=== PATIENT | female | born 1950 | race African-American/Black ===

== ENCOUNTER 2017-09-18 19:04 | Emergency (ER) | payer MEDICARE, OTHER ==
[~2017-09-18] VITALS: Ht 165.1 cm; Wt 65.8 kg
[~2017-09-18 19:04] MED LIST: ATIVAN0.5 MG PO; BAYER CHEWABLE81 MG PO; CARVEDILOL12.5 MG PO; CARVEDILOL25 MG PO; CELEXA20 MG PO; CIPRO500 MG PO; CLOPIDOGREL; COLACE100 MG PO; CYCLOBENZAPRINE5 MG PO; DEMADEX10 MG PO; DOXYCYCLINE 10100 MG PO; FAMCICLOVIR500 MG PO; FLAGYL500 MG PO; FLEXERIL; HUMALOG100 UNIT/1; HUMALOG100 UNIT/2 SUBQ; HYDROCODON-ACE1 EAC7 PO; HYDROCODONE-AP1 EAC6 PO; LANTUS; LANTUS100 UNIT/M SUBQ; LEVAQUIN 500 M500 M2 PO; LISINOPRIL20 MG PO; LOPRESSOR; LYRICA150 MG PO; LYRICA20 MG/1 ML PO; MAGOX 400400 MG PO; MYFORTIC180 MG PO; MYFORTIC360 MG PO; NOHOMEMEDICATIONS; NORCO 5-325 TA1 EAC1 PO; NORCO 5-325 TA1 EACH PO; NOVOLOG100 UNIT/1 SQ; ONDANSETRON HCL4 M2 PO; PERCOCET; PHOSLO667 MG; PLAVIX 75 MG TA75 M1 PO; PROBIOTIC1 EAC1 PO; PROGRAF1 MG PO; PROTONIX40 M1 PO; RENAVITE; SENSIPAR 30 MG30 M1; VICODIN 5-5001 EACH PO; ZOCOR40 MG PO; ZOFRAN ODT4 MG PO; ZOFRAN8 MG PO
[2017-09-18] MEDS ORDERED: ELIQUIS5 MG PO (19:11)
[2017-09-18 20:07] LABS: URINE BILIRUBIN NEGATIVE (Negative); URINE BLOOD TRACE (Negative); URINE CLARITY CLEAR; URINE COLOR YELLOW; URINE GLUCOSE-RANDOM NEGATIVE (Negative); URINE KETONES NEGATIVE (Negative); URINE PROTEIN NEGATIVE (Negative); URINE SPECIFIC GRAVITY 1.015 (1.005-1.030); URINE UROBILINOGEN 0.2 E.U./dl (0.2-1.0)
[2017-09-18 20:08] LABS: URINE LEUKOCYTES-REFLEX 2+ (Negative); URINE NITRITE-REFLEX POSITIVE (Negative)
[2017-09-18 20:21] LABS: BACTERIA-REFLEX >30 Many /HPF (None Seen); SQUAMOUS >10 Many /LPF (0-3); URINE RBC 0-2 Rare /HPF (0-2); WBC CLUMPS Few (None Seen)
[2017-09-18] MEDS ORDERED: CLARITIN10 MG PO (20:21)
[2017-09-18] MEDS ORDERED: FLONASE 0.05%50 MCG NASAL (20:21)
[2017-09-18 20:22] LABS: CASTS None Seen /LPF (None Seen); CRYSTALS None Seen /LPF (None Seen); MUCUS None Seen strn/LPF (None Seen)
[2017-09-18] MEDS ORDERED: CIPRO500 MG PO (20:25)
[2017-09-18 20:33] VITALS: BP 153/42
== END 2017-09-18 20:34 | disposition home or self-care (01) ==
LOC: M.ERS 19:04
PROVIDERS: Nurse Practitioner Family
DX: N39.0 Urinary tract infection, site not specified (principal); H92.12 Otorrhea, left ear; F41.9 Anxiety disorder, unspecified; F32.9 Major depressive disorder, single episode, unspecified; E10.22 Type 1 diabetes mellitus with diabetic chronic kidney disease; N18.6 End stage renal disease; I25.10 Atherosclerotic heart disease of native coronary artery without angina pectoris; I12.0 Hypertensive chronic kidney disease with stage 5 chronic kidney disease or end stage renal disease; Z86.73 Personal history of transient ischemic attack (TIA), and cerebral infarction without residual deficits; Z90.49 Acquired absence of other specified parts of digestive tract; Z88.5 Allergy status to narcotic agent; Z91.041 Radiographic dye allergy status

== ENCOUNTER 2017-10-04 22:15 | Inpatient (IN) | payer MEDICARE, OTHER ==
[~2017-10-04] VITALS: Ht 165.1 cm; Wt 62.6 kg
[~2017-10-04 22:15] MED LIST changes: +CLARITIN10 MG PO; +ELIQUIS5 MG PO; +FLONASE 0.05%50 MCG NASAL
[2017-10-04 22:27] VITALS: BP 131/52
[2017-10-05 00:07] LABS: URINE BILIRUBIN 2+ (Negative); URINE BLOOD NEGATIVE (Negative); URINE CLARITY CLEAR; URINE COLOR YELLOW; URINE GLUCOSE-RANDOM NEGATIVE (Negative); URINE KETONES NEGATIVE (Negative); URINE LEUKOCYTES-REFLEX NEGATIVE (Negative); URINE NITRITE-REFLEX NEGATIVE (Negative); URINE PROTEIN NEGATIVE (Negative); URINE SPECIFIC GRAVITY >= 1.030 (1.005-1.030); URINE UROBILINOGEN 0.2 E.U./dl (0.2-1.0)
[2017-10-05 00:15] LABS: ICTOTEST (BILI CONFIRMATORY) Negative (Negative)
--- NOTE | 2017-10-05 00:36 | NUR ---
THIS NURSE HAS ATTEMPTED TIMES TWO. AND A SECOND NURSE HAS ALSO. CHARGE NURSE HAS BEEN NOTIFIED. LAB WAS CALLED AT THIS TIME WELL AND UPDATED ON IV STATUS (pT HAD REFUSED LAB REQUESTING IT BE DONE WHEN IV WAS STARTED.)
[2017-10-05 02:21] LABS: ABSOLUTE LYMPHOCYTES 1.4 thou/uL (0.8-5.3); ABSOLUTE MONOCYTES 0.5 thou/uL (0.0-1.2); ABSOLUTE NEUTROPHILS 5.4 thou/uL (1.6-8.1); BASOPHILS 0.6 %; EOSINOPHILS 0.4 %; HEMOGLOBIN 11.7 gm/dL (12.0-15.0); LYMPHOCYTES 19.4 %; MCHC 32.4 g/dL (28.0-37.0); MCV 86.4 fL (80.0-100.0); MONOCYTES 7.1 %; MPV 9.9 fl. (7.2-11.1); NUCLEATED RBCS 0 /100WBC; PLATELET COUNT* 214 thou/uL (150-400); POLYS 72.5 %; RBC 4.16 mil/uL (4.20-5.00); RDW-CV 13.8 % (10.5-14.5); WBC 7.4 thou/uL (4.0-11.0)
[2017-10-05 02:30] LABS: ANION GAP 12 mmol/L (7-16); BUN 69 mg/dL (7-18); CALCIUM 9.9 mg/dL (8.5-10.1); CHLORIDE 108 mmol/L (98-107); CO2 24 mmol/L (21-32); CREATININE 2.4 mg/dL (0.6-1.3); GLUCOSE 114 mg/dL (70-99); POTASSIUM 3.9 mmol/L (3.5-5.1); SODIUM 144 mmol/L (136-145)
[2017-10-05 02:34] VITALS: BP 166/61
[2017-10-05 02:41] LABS: ALBUMIN 3.3 g/dL (3.4-5.0); ALKALINE PHOSPHATASE 133 U/L (46-116); LIPASE 132 U/L (73-393); NT-PRO BRAIN NAT PEPTIDE 710 pg/mL (<300); SGOT 29 U/L (15-37); SGPT 20 U/L (30-65); TOTAL BILIRUBIN 0.7 mg/dL (<0.1-1.0); TOTAL PROTEIN 7.1 g/dL (6.4-8.2); TROPONIN-I LEVEL <0.06 ng/mL (<0.06)
--- NOTE | 2017-10-05 06:04 | NUR ---
PT TO FLOOR APROX 0230 AND ASSUMED CARE. A&O X4 CALM COOPERITVE. SR ON THE MONITOR. IVF. UP X1 TO COMODE. RA. VITALS WNL. SEE MAR. SEE CHARTING. FALL PRECAUTIONS IN PLACE. HOURLY ROUNDING FOR SAFETY.
[2017-10-05 08:05] VITALS: BP 135/39
--- NOTE | 2017-10-05 08:15 | NUR ---
RECEIVED REPORT. ASSUMED CARE OF PT AT 0730. VSS. CARDIAC MONTIORING IN PLACE SR. AM ASSESSMENT AND VITALS COMPLETED CHARTED. PT ALERT AND ORIETNED. PT ON RA. IV SALINE LOCKED. PT REPORTS HEADACHE THIS AM. PRN TYLENOL GIVEN. PT IS UP WITH MOD. ASSISTANCE AND CANE TO BATHROOM. PT HAS HX OF CVA WITH RIGHT SIDED WEAKNESS. PT'S SON AT BEDSIDE. PT ASSISTED UP FOR BREAKFAST. CALL LIGHT IS WITIN REACH. WILL CONTINUE TO MONITOR FOR DURATION OF SHIFT.
[2017-10-05 11:51] VITALS: BP 122/47
--- NOTE | 2017-10-05 13:06 | EKG ---
[place] [address] ELECTROCARDIOGRAM REPORT Name: DIONI RANDHAWA Room: [address] IN .R.#: [id number] Admission: 10/05/17 Attend Phys: Benjamin Winston MD Discharge: Date of : 54 Report #: [id number] THIS REPORT FOR: //name// [facility] ED Test Date: 2017-10-04 Test Time: 23:31:16 Pat Name: DIONI RANDHAWA Department: Room: Gender: Knot Borer: JASE Mccurdy : 1950 Requested By: Tiana Hough Order Number: [id number] MD: Jonh Al Measurements Intervals [place] Rate: 74 P: 15 DE: 174 QRS: 10 QRSD: 124 T: 10 QT: 440 QTc: 489 Interpretive Statements Sinus rhythm Probable left atrial enlargement Nonspecific intraventricular conduction delay Baseline wander in lead(s) V6 Compared to ECG 03/03/2017 14:55:54 Intraventricular conduction delay now present Electronically Signed On 10-05-2017 13:06:42 CDT by Jonh Al [email or web address] <ELECTRONICALLY SIGNED> By: Jonh Al MD, FACC 10/05/17 1306 [id number] Jonh Al MD, [facility] /EPI
--- NOTE | 2017-10-05 15:12 | NUR ---
CM SPOKE TO THE PATIENT TO DISCUSS HOME SITUATION, DISCHARGE PLANNING, AND TO INFORM OF THE ROLE OF CM. PATIENT ALERT AND ORIENTED. PATIENT RESIDES AT HOME WITH HE SON AND STATES THAT THEY 'DEPEND ON EACH OTHER'. PATIENT DOES ALL COOKING AND CLEANING AT HOME. NEITHER OF THEM DRIVE. 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 PATIENTS SISTER JAYDA CHECKIN IN THEM DAILY, BUT IS BUSY AND WORKS. PATIENT HAS A HX OF SNF AT [place]. PATIENT INFORMS THAT SHE PLANS TO RETURN HOME AT D/C. CM WAS INFORMED BY THE NURSE DIGITAL PRE PRESS OPERATOR THAT THE PATIENTS SON IS 'REQUESTING CARE AND ASSISTANCE FROM THE STAFF TO GET FROM THE BATHROOM, AND REQUESTING MEALS'. AT THE NURSE MANAGERS REQUEST CM SPOKE TO THE PATIENTS SISTER TO DISCUSS THIS, AND ALTHOUGH SHE AGREES WITH NURSING SHE IS WORKING AND IS NOT ABLE TO COME TO THE HOSPITAL RIGHT WAY, BUT WILL DISCUSS THIS WITH THE PATIENT AND HER NEPHEW. CM WILL REMAIN AVAILABLE TO ASSIST AND FOLLOW NEEDED.
[2017-10-05 16:14] VITALS: BP 113/30
--- NOTE | 2017-10-05 17:26 | NUR ---
VSS. CARDIAC MONTIORING IN PLACE WITH NO CHANGES THIS SHIFT. PT REMAINS ALERT AND ORIENTED. PT REMAINS ON RA. IVF INFUSING PER ORDERS. PT GIVEN IV PAIN MEDS WITH RELIEF. PT IS UP WITH STAND BY ASSISTANCE AND CANE. LAB UNABLE TO DRAW BMP WAS REPORTED THAT THEY WOULD RE-ATTEMPT. PT INFORMED OF PLAN OF CARE. CALL LIGHT IS WITHIN REACH. WILL CONTINUE TO MONITOR FOR DURATION OF SHIFT.
[2017-10-05 19:50] VITALS: BP 134/43
[2017-10-06] VITALS (7 sets, daily range): BP systolic 106–167; BP diastolic 25–87
--- NOTE | 2017-10-06 06:31 | NUR ---
A&O X4 CALM BENOIT. SR ON THE MONITOR. RA. UP WITH CANE. VITALS WNL. SEE MAR. SEE CHARTING. FALL PRECAUTIONS IN PLCE. HOURLY ROUNDING FOR SAFETY.
--- NOTE | 2017-10-06 07:20 | NUR ---
CHANGE OF SHIFT BEDSIDE REPORT GIVEN ASSUMED PATIENT CARE PATIENT SEEN AT BEDSIDE, ASLEEP IN BED
[2017-10-06 11:40] LABS: CALCIUM 8.8 mg/dL (8.5-10.1); CREATININE 2.3 mg/dL (0.6-1.3); POTASSIUM 4.3 mmol/L (3.5-5.1)
--- NOTE | 2017-10-06 18:10 | NUR ---
PATIENT LAYING IN BED WATCHING TV A AND O X 4 NSR CTA/DIM/RA GOOD APPETITE LAST BM UNKNOWN GOOD UO UP WITH ASSIST 1 TO BATHROOM IV L FA 20 GA IVF NS AT 75CC/HR C/O BURNETTE TREATED WITH FENTANYL IVP AND RELIEVED CALL LIGHT IN REACH AND INSTRUCTED GIVEN AND FOLLOWED
--- NOTE | 2017-10-07 02:45 | NUR ---
DOCTOR NOTIFIED OF HIGH BLOOD PRESSURE, SEE ORDERS.
--- NOTE | 2017-10-07 02:58 | NUR ---
PATIENT RESTED IN BED, NO ACUTE CHANGES. PATIENT DID NOT SHOW SIGNS OF DISTESS. FALL PRECAUTIONS IN PLACE, BED ALARM ON, CALL LIGHT WITHIN REACH, HOULRY ROUNDING OBSERVED.
[2017-10-07 03:43] VITALS: BP 153/51
[2017-10-07 04:45] LABS: CALCIUM 9.2 mg/dL (8.5-10.1); CREATININE 1.6 mg/dL (0.6-1.3); POTASSIUM 4.5 mmol/L (3.5-5.1)
[2017-10-07 08:00] VITALS: BP 175/65
[2017-10-07] MEDS ORDERED: CEFDINIR300 MG PO (10:37)
[2017-10-07] MEDS ORDERED: ACETAMINOPHEN500 M1 PO (10:49)
[2017-10-07 10:50] VITALS: BP 175/65
--- NOTE | 2017-10-07 10:50 | NUR ---
ASSUMED PT CARE AT 0700 PT IS ALERT AND ORIENTED X 4 PT DENIES PAIN OR SOA, PT IS UP AD DARI PT IS NOT A FALL RISK, PT IS SR ON THE MONITOR, PT IS CLEARED FOR DISCHARGE PT IV REMOVED MEDICATIONS GIVEN, WILL CONTINUE TO MONITOR
--- NOTE | 2017-10-19 08:41 | CON ---
[address] [address] CONSULTATION Name: SYDNEEDIONI Room: [address] IN M.R.#: [id number] Admission: 10/05/17 Attend Phys: Benjamin Winston MD Discharge: 10/07/17 Date of : 54 Report #: [id number] THIS REPORT FOR: //name// CC: Benjamin Winston [place] DATE OF SERVICE: 10/05/2017 NEPHROLOGY CONSULTATION CONSULTING PHYSICIAN: Benjamin Winston M.D. CHIEF COMPLAINT: Weakness, generalized pain and diarrhea. REASON FOR NEPHROLOGY CONSULTATION: Acute kidney injury on chronic kidney disease stage 3 and history of renal transplant. HISTORY OF PRESENT ILLNESS: This is a 66-year-old female and she has a past medical history of chronic kidney disease stage 3. Her last creatinine was 1.3 on 09/12/2017 and she follows with Dr. Carlson. She has a history of end-stage renal disease and was on hemodialysis, but then underwent kidney transplant in 2011, which was a donor transplant at [facility]. She has a history of diabetes type 1, hypertension and other medical problems, who came in feeling very weak with decreased appetite, and hence, she was admitted. The patient apparently was treated with multiple antibiotics in the past few days. Initially, she had hearing problems and had a UTI and with one of the antibiotics, she had also developed some diarrhea and then she lost her appetite and then she developed generalized aches and pains and that is why so she came to the hospital. She was found to have abnormal creatinine of 2.4 when she came in; hence, Nephrology was consulted. She follows with Dr. Carlson at [facility]. She does take lisinopril 20 mg a day as well as torsemide 10 mg a day in addition to her immunosuppressants, which are Myfortic 540 mg b.i.d. and tacrolimus which is 4 mg b.i.d. She was given some IV fluids overnight and we do not have a creatinine after that. She has been making urine. She has been feeling a little bit stronger. REVIEW OF SYSTEMS: The patient was having generalized pain and weakness and she was having diarrhea. Other review of systems were done and they were negative. ALLERGIES: IODINE AND CODEINE. PAST MEDICAL AND SURGICAL HISTORY: Included end-stage renal disease and she has had a kidney transplant, donor in 2011. Chronic kidney disease stage III now, with baseline creatinine of 1.3 in August of this year; history of coronary artery disease; history of bypass surgery in 2001; history of stroke; diabetes type 1; hypertension; cholecystectomy; shingles; anxiety; depression; [place] [address] CONSULTATION Name: DIONI RANDHAWA Room: [address] IN M.R.#: [id number] Admission: 10/05/17 Attend Phys: Benjamin Winston MD Discharge: 10/07/17 Date of : 54 Report #: [id number] fistula in the left arm; peripheral arterial disease and has sensory on the legs. FAMILY HISTORY: Noncontributory. HOME MEDICATIONS: Include Zofran, loratadine, fluticasone, lisinopril, Eliquis, pantoprazole, Demadex, simvastatin, magnesium oxide, Lyrica, tacrolimus 4 mg b.i.d., mycophenolate sodium 540 mg b.i.d., Plavix 75 mg daily, 12.5 mg b.i.d. and pregabalin 150 mg b.i.d. SOCIAL HISTORY: She lives with her son at home. She does not smoke or use alcohol or any recreational drugs. PHYSICAL EXAMINATION: VITAL SIGNS: Blood pressure is 135/39, respiratory rate is 18, pulse rate 73, temperature is 36.9 and pulse ox, she is not using any oxygen, was 100%. GENERAL: She is awake. She is weak and she is oriented x 3. HEAD, EYES, EARS, NOSE AND THROAT: Mucous members are moist. NECK: No JVD. LUNGS: Clear to auscultation bilaterally. No crackles or wheezing. CARDIOVASCULAR: S1, S2 normal. No murmurs or rubs. ABDOMEN: Soft, nondistended and nontender. Right lower quadrant, kidney transplant is intact. There is no pain. Incision is dry and clean. There is no bruit over the site. EXTREMITIES: Lower extremities, there is no edema. NEUROLOGICAL FUNCTION: Gross neurological function is intact. PSYCHIATRIC: Mood and affect seems to be normal. LABORATORY DATA: Labs from this morning at 02:00 a.m., hemoglobin is 11.7. Creatinine was 2.4 and BUN heather to 69 and chloride was 108 and sodium was 144. Other labs were reviewed. IMAGING: Chest x-ray was reviewed. ASSESSMENT AND PLAN: 1. Acute kidney injury on chronic kidney disease stage 3, history of renal transplant in the setting of diarrhea and poor appetite: The patient likely got dehydrated and then she was also on torsemide and lisinopril. So, these medications should be kept on hold and her creatinine should be checked again. Renal ultrasound for the transplant kidney will also be checked. Continue normal saline at 75 mL an hour and I's and O's. Tacrolimus will be checked in the morning. Hopefully, this is all dehydration and will get better. U/A showed no protein and no blood. 2. Diarrhea and just feeling weak: Diarrhea could have been associated with antibiotics. We will defer to primary team for further management of that. The patient is feeling a little stronger [place] [address] CONSULTATION Name: DIONI RANDHAWA Room: [address] IN .R.#: [id number] Admission: 10/05/17 Attend Phys: Benjamin Winston MD Discharge: 10/07/17 Date of : 54 Report #: [id number] 3. History of renal transplant, which donor in 2011: Continue with the current Myfortic at 540mg b.i.d. and tacrolimus 4 mg b.i.d. and tacrolimus level will be checked in the morning. Thank you for this consultation and we will continue to follow along with you. Plan was discussed with the patient as well as the patient's nurse. <ELECTRONICALLY SIGNED> By: Renay Yu MD 10/19/17 0841 1119 [id number] Yu MD /nt
== END 2017-10-07 11:28 | disposition home or self-care (01) | DRG 637 ==
LOC: M.ERS 22:15 → M.2W 10-05 00:56 → M.TBA-ER 10-05 00:56 → M.2W 10-05 02:28
PROVIDERS: Internal Medicine; Nurse Practitioner; ADMIT Internal Medicine
DX: E10.65 Type 1 diabetes mellitus with hyperglycemia (principal); N17.0 Acute kidney failure with tubular necrosis; N39.0 Urinary tract infection, site not specified; Z94.0 Kidney transplant status; Q61.9 Cystic kidney disease, unspecified; F41.9 Anxiety disorder, unspecified; E86.0 Dehydration; E10.22 Type 1 diabetes mellitus with diabetic chronic kidney disease; E10.51 Type 1 diabetes mellitus with diabetic peripheral angiopathy without gangrene; F32.9 Major depressive disorder, single episode, unspecified; I12.9 Hypertensive chronic kidney disease with stage 1 through stage 4 chronic kidney disease, or unspecified chronic kidney disease; N18.3 Chronic kidney disease, stage 3 (moderate); R19.7 Diarrhea, unspecified; I25.10 Atherosclerotic heart disease of native coronary artery without angina pectoris; Z86.73 Personal history of transient ischemic attack (TIA), and cerebral infarction without residual deficits; Z90.49 Acquired absence of other specified parts of digestive tract; Z79.2 Long term (current) use of antibiotics; Z79.899 Other long term (current) drug therapy; Z88.6 Allergy status to analgesic agent; Z91.041 Radiographic dye allergy status; Z95.1 Presence of aortocoronary bypass graft; Z82.49 Family history of ischemic heart disease and other diseases of the circulatory system; Z82.3 Family history of stroke; Z84.1 Family history of disorders of kidney and ureter

== ENCOUNTER → 2018-01-25 | Outpatient (CLI) | payer MEDICARE, OTHER ==
[~2018-01-25] MED LIST changes: +ACETAMINOPHEN500 M1 PO; +CEFDINIR300 MG PO
== END ==
LOC: M.RAD 12:14
DX: M41.84 Other forms of scoliosis, thoracic region (principal); M53.9 Dorsopathy, unspecified

== ENCOUNTER → 2018-04-30 | Outpatient (CLI) | payer OTHER ==
--- NOTE | 2018-04-30 11:26 | 2DMMODE ---
[place] [address] 2 D/M-MODE ECHOCARDIOGRAM Name: SYDNEEDIONI Room: [facility]#: [id number] Admission: 04/30/18 Attend Phys: Linda Castillo Discharge: Date of : 54 Date of Service: 04/30/18 1126 Report #: [id number] THIS REPORT FOR: //name// APPROVED REPORT Study performed: 04/30/2018 10:29:23 EXAM: Comprehensive 2D, Doppler, and color-flow Echocardiogram Patient Location: Out-Patient Status: routine BSA: 1.73 HR: 68 bpm BP: 154/59 mmHg Other Information Study Quality: Good Indications Atrial Fibrillation CAD Hypertension/HDD 2D Dimensions IVSd: 14.69 (7-11mm) LVOT Diam: 20.07 (18-24mm) LVDd: 38.65 mm PWd: 11.58 (7-11mm) Ascending Ao: 30.00 (22-36mm) LVDs: 22.90 (25-40mm) Aortic Root: 25.29 mm Volumes Left Atrial Volume (Systole) LA ESV Index: 21.80 mL/m2 Aortic Valve AoV Peak Anastacio.: 1.36 m/s AO Peak Gr.: 7.36 mmHg LVOT Max P.76 mmHg AO Mean Gr.: 4.00 mmHg LVOT Mean P.96 mmHg LVOT Max V: 0.97 m/s AO V2 VTI: 31.04 cm LVOT Mean V: 0.65 m/s TORITO (VTI): 2.60 cm2 LVOT V1 VTI: 25.56 cm AI Tyrrell: 3.04 m/s2 AI PHT: 443.22 ms Mitral Valve E/A Ratio: 0.74 [place] [address] 2 D/M-MODE ECHOCARDIOGRAM Name: DIONI RANDHAWA Room: [facility]#: [id number] Admission: 04/30/18 Attend Phys: Linda Castillo Discharge: Date of : 54 Date of Service: 04/30/18 1126 Report #: [id number] MV Decel. Time: 192.69 ms MV E Max Anastacio.: 0.60 m/s MV PHT: 55.88 ms MVA (PHT): 3.94 cm2 TDI E/Lateral E': 6.67 E/Medial E': 12.00 Medial E' Anastacio.: 0.05 m/s Lateral E' Anastacio.: 0.09 m/s Pulmonary Valve PV Peak Anastacio.: 0.94 m/s PV Peak Gr.: 3.57 mmHg Tricuspid Valve RAP Estimate: 5.00 mmHg TR Peak Gr.: 20.82 mmHg RVSP: 25.82 mmHg PA Pressure: 25.82 mmHg Left Ventricle The left ventricle is normal size. There is normal LV segmental wall motion. Mild concentric left ventricular hypertrophy. Left ventricular systolic function is normal. The left ventricular ejection fraction is within the normal range. LVEF is 55-60%. Grade I - abnormal relaxation pattern. Right Ventricle The right ventricle is normal size. The right ventricular systolic function is normal. Atria The left atrium size is normal. The right atrium size is normal. Aortic Valve Aortic valve is mildly calcified. Mild aortic regurgitation. There is no aortic valvular stenosis. Mitral Valve The mitral valve is normal in structure. Mild mitral regurgitation. No evidence of mitral valve stenosis. Tricuspid Valve The tricuspid valve is normal in structure. [place] [address] 2 D/M-MODE ECHOCARDIOGRAM Name: DIONI RANDHAWA Room: [facility]#: [id number] Admission: 04/30/18 Attend Phys: Linda Castillo Discharge: Date of : 54 Date of Service: 04/30/18 1126 Report #: [id number] Pulmonic Valve The pulmonary valve is normal in structure. Trace pulmonic regurgitation. Great Vessels The aortic root is normal in size. IVC is normal in size and collapses >50% with inspiration. Pericardium There is no pericardial effusion. <Conclusion> Mild concentric left ventricular hypertrophy. LVEF is 55-60%. Aortic valve is mildly calcified. Mild aortic regurgitation. Mild mitral regurgitation. <ELECTRONICALLY SIGNED> By: Uli Weaver MD, FACC 04/30/18 1126 112 112 Uli Weaver MD, FACC /INF
== END ==
LOC: M.CRD 10:00
DX: I25.810 Atherosclerosis of coronary artery bypass graft(s) without angina pectoris (principal); I48.0 Paroxysmal atrial fibrillation; I48.91 Unspecified atrial fibrillation; I10 Essential (primary) hypertension; I08.0 Rheumatic disorders of both mitral and aortic valves

== ENCOUNTER → 2018-07-10 | Outpatient (CLI) | payer OTHER | LOC: M.RAD 11:35 | DX: Z51.81 Encounter for therapeutic drug level monitoring (principal); Z79.899 Other long term (current) drug therapy; Z88.5 Allergy status to narcotic agent; Z91.041 Radiographic dye allergy status; Z98.890 Other specified postprocedural states ==

== ENCOUNTER → 2018-10-11 | Outpatient (CLI) | payer OTHER | LOC: M.ULTRA 10:28 | DX: M79.604 Pain in right leg (principal); I12.9 Hypertensive chronic kidney disease with stage 1 through stage 4 chronic kidney disease, or unspecified chronic kidney disease; E11.22 Type 2 diabetes mellitus with diabetic chronic kidney disease; E11.51 Type 2 diabetes mellitus with diabetic peripheral angiopathy without gangrene; E78.5 Hyperlipidemia, unspecified; E11.42 Type 2 diabetes mellitus with diabetic polyneuropathy; I48.0 Paroxysmal atrial fibrillation; N18.4 Chronic kidney disease, stage 4 (severe); I25.10 Atherosclerotic heart disease of native coronary artery without angina pectoris; Z79.899 Other long term (current) drug therapy; Z79.4 Long term (current) use of insulin; Z95.1 Presence of aortocoronary bypass graft; Z94.0 Kidney transplant status; Z88.8 Allergy status to other drugs, medicaments and biological substances ==

== ENCOUNTER → 2018-10-30 | Outpatient (CLI) | payer OTHER | LOC: M.RAD 10-29 14:00 → M.CT 10-29 14:00 | DX: I67.82 Cerebral ischemia (principal); I70.0 Atherosclerosis of aorta; I63.81 Other cerebral infarction due to occlusion or stenosis of small artery; G44.311 Acute post-traumatic headache, intractable; M79.604 Pain in right leg; Z88.8 Allergy status to other drugs, medicaments and biological substances ==

== ENCOUNTER → 2018-10-31 | Outpatient (CLI) | payer OTHER | LOC: M.ULTRA 12:38 | DX: S82.401D Unspecified fracture of shaft of right fibula, subsequent encounter for closed fracture with routine healing (principal); I70.203 Unspecified atherosclerosis of native arteries of extremities, bilateral legs; Z88.8 Allergy status to other drugs, medicaments and biological substances; W19.XXXD Unspecified fall, subsequent encounter ==

== ENCOUNTER 2018-12-26 16:42 | Inpatient (IN) | payer OTHER ==
[~2018-12-26] VITALS: Ht 162.6 cm; Wt 84.9 kg
[2018-12-26] VITALS (15 sets, daily range): BP systolic 127–194; BP diastolic 46–103
[~2018-12-26 16:42] MED LIST changes: -DEMADEX10 MG PO; +DEMADEX20 MG PO
[2018-12-26 17:35] LABS: HEMATOCRIT 39.1 % (37.0-47.0); HEMOGLOBIN 12.6 gm/dL (12.0-15.0); MCH 28.8 pg (26.0-34.0); MCHC 32.2 g/dL (28.0-37.0); MCV 89.5 fL (80.0-100.0); MPV 9.3 fl. (7.2-11.1); NUCLEATED RBCS 0 /100WBC; PLATELET COUNT* 201 thou/uL (150-400); RBC 4.37 mil/uL (4.20-5.00); RDW-CV 14.6 % (10.5-14.5); WBC 13.5 thou/uL (4.0-11.0)
[2018-12-26 17:42] LABS: URINE BILIRUBIN NEGATIVE (Negative); URINE BLOOD 2+ (Negative); URINE CLARITY CLEAR; URINE COLOR YELLOW; URINE GLUCOSE-RANDOM 2+ (Negative); URINE LEUKOCYTES-REFLEX NEGATIVE (Negative); URINE NITRITE-REFLEX NEGATIVE (Negative); URINE PROTEIN 2+ (Negative); URINE SPECIFIC GRAVITY 1.025 (1.005-1.030); URINE UROBILINOGEN 0.2 E.U./dl (0.2-1.0)
[2018-12-26 17:45] LABS: CALCIUM 9.2 mg/dL (8.5-10.1); CREATININE 1.3 mg/dL (0.6-1.3); POTASSIUM 4.3 mmol/L (3.5-5.1)
[2018-12-26 17:48] LABS: URINE KETONES 3+ (Negative)
[2018-12-26 17:49] LABS: ALBUMIN 3.3 g/dL (3.4-5.0); MAGNESIUM 1.6 mg/dL (1.8-2.4); TOTAL BILIRUBIN 1.1 mg/dL (<0.1-1.0); TOTAL PROTEIN 7.1 g/dL (6.4-8.2)
[2018-12-26 17:49] LABS: ACETEST (KETONE CONFIRMATORY) Large (Negative)
[2018-12-26 18:04] LABS: BACTERIA-REFLEX 1-9 Few /HPF (None Seen); CASTS None Seen /LPF (None Seen); CRYSTALS None Seen /LPF (None Seen); SQUAMOUS 0-3 Few /LPF (0-3); URINE RBC 0-2 Rare /HPF (0-2); URINE WBC-REFLEX 0-5 Rare /HPF (0-5)
[2018-12-26 18:14] LABS: ABSOLUTE LYMPHOCYTES 0.5 thou/uL (0.8-5.3); ABSOLUTE MONOCYTES 0.8 thou/uL (0.0-1.2); ABSOLUTE NEUTROPHILS 12.2 thou/uL (1.6-8.1)
[2018-12-26 18:15] LABS: PLATELET ESTIMATE ADEQUATE
[2018-12-26 21:28] LABS: BE -15.1 mmol/L (-2 to +3); PO2 87.1 mmHg (75.0-100.0)
[2018-12-26 21:31] LABS: pH 7.218 (7.340-7.450)
[2018-12-26 21:58] LABS: CALCIUM 9.4 mg/dL (8.5-10.1); CREATININE 1.4 mg/dL (0.6-1.3); POTASSIUM 4.9 mmol/L (3.5-5.1)
[2018-12-26 22:01] LABS: ALBUMIN 3.3 g/dL (3.4-5.0); MAGNESIUM 1.7 mg/dL (1.8-2.4); PHOSPHORUS* 3.5 mg/dL (2.5-4.9)
[2018-12-27] VITALS (35 sets, daily range): BP systolic 79–200; BP diastolic 37–82
[2018-12-27 01:14] LABS: HEMATOCRIT 33.2 % (37.0-47.0); HEMOGLOBIN 11.1 gm/dL (12.0-15.0); MCH 29.1 pg (26.0-34.0); MCHC 33.3 g/dL (28.0-37.0); MCV 87.6 fL (80.0-100.0); MPV 8.9 fl. (7.2-11.1); RBC 3.79 mil/uL (4.20-5.00); RDW-CV 14.8 % (10.5-14.5); WBC 8.4 thou/uL (4.0-11.0)
[2018-12-27 01:21] LABS: ALBUMIN 2.6 g/dL (3.4-5.0); CALCIUM 8.9 mg/dL (8.5-10.1); CREATININE 1.4 mg/dL (0.6-1.3); MAGNESIUM 2.2 mg/dL (1.8-2.4); PHOSPHORUS* 1.2 mg/dL (2.5-4.9)
[2018-12-27 01:22] LABS: POTASSIUM 3.6 mmol/L (3.5-5.1)
[2018-12-27 01:37] LABS: ALBUMIN 2.7 g/dL (3.4-5.0); ALKALINE PHOSPHATASE 122 U/L (46-116); ANION GAP 14 mmol/L (7-16); BUN 11 mg/dL (7-18); CALCIUM 8.5 mg/dL (8.5-10.1); CHLORIDE 114 mmol/L (98-107); CO2 18 mmol/L (21-32); CREATININE 1.5 mg/dL (0.6-1.3); GLUCOSE 140 mg/dL (70-99); MAGNESIUM 2.3 mg/dL (1.8-2.4); SGOT 10 U/L (15-37); SGPT 17 U/L (30-65); SODIUM 146 mmol/L (136-145); TOTAL BILIRUBIN 0.8 mg/dL (<0.1-1.0); TOTAL PROTEIN 5.4 g/dL (6.4-8.2)
[2018-12-27 01:38] LABS: POTASSIUM 3.6 mmol/L (3.5-5.1)
[2018-12-27 05:13] LABS: ALBUMIN 2.6 g/dL (3.4-5.0); CALCIUM 8.6 mg/dL (8.5-10.1); CREATININE 1.5 mg/dL (0.6-1.3); MAGNESIUM 2.4 mg/dL (1.8-2.4); PHOSPHORUS* 2.2 mg/dL (2.5-4.9); POTASSIUM 4.8 mmol/L (3.5-5.1)
--- NOTE | 2018-12-27 06:45 | NUR ---
ASSESSMENTS CHARTED. PATIENT ON UNIT AT 195. FLUIDS AND INSULIN INFUSING FOR MAJORITY OF SHIFT PER DKA PROTOCOL. PATIENT BEGAN EXPERIENCING SOA AND DYSPNEA AT 0600. PLACED PATIENT ON 2L O2 AND CALLED PHYSICIAN. ORDERS RECEIVED, CXR OBTAINED. FLUIDS AND INSULIN STOPPED PER PHYSICIAN ORDER. BLOOD GLUCOSE DOWN TO 259. LAB WORK SHOWS ANION GAP CLOSED. NO FAMILY PRESENT DURING SHIFT. PATIENT DENIED HAVING TO URINATE DURING SHIFT, UPON FURTHER ASSESSMENT PAITENT HAD URINATED IN THE BED WITHOUT REALIZING IT. PATIENT REFUSES TO HAVE FRANCOIS CATHETER OR STRAIGHT CATH PLACED. PATIENT WAS FEBRILE ON ADMISSION, FEVER NOW RESOLVED. WILL CONTINUE TO MONITOR.
[2018-12-27 07:40] LABS: BE -6.4 mmol/L (-2 to +3); PCO2 33.5 mmHg (35.0-45.0); pH 7.353 (7.340-7.450)
--- NOTE | 2018-12-27 13:56 | NUR ---
PT A&O. DKA DC'd PER DR WEBB. VSS. INSULIN ADMINISTERED PER PROTOCOL. PURE WICK CATHETER APPLIED FOR INCONTINENCE. PT TOLERATED SIPS, SWALLOWING HER PILLS FINE. IVF AT 75 MLS/HR. REPORT GIVEN TO STOCK SHIPPER, PACO. FAMILY NOTIIFED.
--- NOTE | 2018-12-27 14:30 | NUR ---
PT.LETHARGIC. AWAKENS BRIEFLY WITH MUCH NAME CALLING, SHAKING HER HAND. SON,WOODROW AND SISTER,JAYDA YARBROUGH AT BEDSIDE. PT.IS NORMALLY INDEPENDENT AT HOME WITH ADS'S,COOKING, CLEANING,LAUNDRY. SHE NO LONGER DRIVES. SON LIVES WITH HER. SHE HAS A CANE BUT DOENS'T ALWAYS NEED TO USE IT. WAS FEELING WELL UNTIL LATE MON. DAUGHTER WILL BE FAXING [employer] WORK FROM [facility]. FOR TO FILL OUT,PER JAYDA. SON MENTIONED INSULIN DEVICE LAYING ON BEDSIDE TABLE. HE IS PT.WEARS THIS. HE CALLED IT A VEGO. HE SAID PT.CLICKS IT TWICE BEFORE MEALS AND SNACKS. IT GIVES HER INSULIN. HE WAS NOT SURE WHAT PRESCRIBED IT. HE SAID SHE HAS MORE AT HOME AND CANNOT REAPPLY THIS ONE ONCE IT HAS COME OFF. DISCARDED IT IN SHARPS BOX. FAMILY EXPRESSED CONCERN THAT THIS IS NOT WORKING PROPERLY OR PT.FORGETS TO CLICK IT, SINCE BG IS HIGH. ROBERT CALLED OFFICE AND SPOKE WITH EDITH JACQUES. SHE SAID THEY PRESCRIBED VEGO. PT.IS TO CLICK IT TWICE WHENEVER SHE EATS. IT IS FILLED WITH NOVALOG INSULIN. SHE SAID PT.CAN FOLLOW UP WITH THEM AT DISCHARGE TO HAVE IT REPLACED. PT.ALSO HAS HX OF KIDNEY TRANSPLANT IN 2011. STILL FOLLOWS WITH [facility]. CM WILL FOLLOW.
--- NOTE | 2018-12-27 17:33 | NUR ---
ASSUMED PT CARE AT 1330. PT CAME UP TO THE FLOOR AND WAS LETHARGIC AND HARD TO AROUSE. BLOOD PRESSURE WAS 70S OVER 30S, NOTIFIED DR AND NEW ORDERS RECIEVED. PT FAMILY IN ROOM AND ASKED MULTIPLE QUESTIONS. THIS NURSE, DOCTORS, AND RN PRIVATE DUTY ANSWERED QUESTIONS. NO FURTHER QUESTIONS OR COMMENTS NOTED. PT WOKE UP ONCE AND WAS ABLE TO TALK TO THIS NURSE. PT IS RESTING IN BED AT THIS TIME. WILL CONTINUE TO MONITOR.
[2018-12-28] VITALS (7 sets, daily range): BP systolic 114–154; BP diastolic 37–62
--- NOTE | 2018-12-28 03:45 | NUR ---
ASSUMED CARE OF PT AT 1900. PT IS ALERT ANDF ORIENTED. VSS. PERRLA. NO COMPLAINTS OF PAIN. PT HAD A TEMP OF 102. PT RECIEVED TYLENOL. NOTIFIED. PT IS IN SINUS RYTHM ON THE TELEMETRY. PT IS RESTING COMFORTABLY IN BED. RESPIRATIONS ARE EVEN AND NONLABORED. WILL CONTINUE TO MONITOR PT.
[2018-12-28 05:23] LABS: ABSOLUTE LYMPHOCYTES 0.7 thou/uL (0.8-5.3); ABSOLUTE MONOCYTES 0.8 thou/uL (0.0-1.2); ABSOLUTE NEUTROPHILS 5.2 thou/uL (1.6-8.1); BASOPHILS 0.4 %; EOSINOPHILS 0.4 %; HEMATOCRIT 32.4 % (37.0-47.0); HEMOGLOBIN 10.8 gm/dL (12.0-15.0); LYMPHOCYTES 10.2 %; MCH 29.1 pg (26.0-34.0); MCHC 33.2 g/dL (28.0-37.0); MCV 87.7 fL (80.0-100.0); MONOCYTES 12.1 %; MPV 9.4 fl. (7.2-11.1); NUCLEATED RBCS 0 /100WBC; PLATELET COUNT* 158 thou/uL (150-400); POLYS 76.9 %; RDW-CV 15.2 % (10.5-14.5); WBC 6.8 thou/uL (4.0-11.0)
[2018-12-28 05:53] LABS: ALBUMIN 2.2 g/dL (3.4-5.0); ALKALINE PHOSPHATASE 100 U/L (46-116); ANION GAP 9 mmol/L (7-16); BUN 14 mg/dL (7-18); CALCIUM 8.4 mg/dL (8.5-10.1); CHLORIDE 112 mmol/L (98-107); CO2 22 mmol/L (21-32); CREATININE 1.7 mg/dL (0.6-1.3); GLUCOSE 139 mg/dL (70-99); PHOSPHORUS* 1.6 mg/dL (2.5-4.9); SGOT 14 U/L (15-37); SGPT 16 U/L (30-65); SODIUM 143 mmol/L (136-145); TOTAL BILIRUBIN 0.5 mg/dL (<0.1-1.0); TOTAL PROTEIN 5.4 g/dL (6.4-8.2)
[2018-12-28 05:59] LABS: POTASSIUM 3.5 mmol/L (3.5-5.1)
--- NOTE | 2018-12-28 10:45 | CON ---
[address] [address] CONSULTATION Name: SYDNEEDIONI Room: [address] IN M.R.#: [id number] Admission: 12/26/18 Attend Phys: Sparkle Bill MD Discharge: Date of : 54 Report #: [id number] THIS REPORT FOR: //name// CC: Sparkle Pichardo DATE OF SERVICE: 12/28/2018 INFECTIOUS DISEASE CONSULTATION ATTENDING PHYSICIAN: Dr. Winston REASON FOR EVALUATION: Gram-negative septicemia. HISTORY OF PRESENT ILLNESS: Chart reviewed, patient examined. This is a 68-year-old woman with diabetes mellitus type 1 complicated historically with end-stage renal disease, she is post renal transplantation. She has had diffuse vasculopathy, known coronary artery disease and previous stroke who presented with progressive and severe weakness, associated with nausea and emesis the day or 2 prior to admission was at its onset. Evaluation was initially found to be hypertensive, subsequently became hypotensive, febrile up to 102. Blood sugars also have been markedly elevated as well. Chest x-ray was unrevealing. Initial creatinine was 1.3, this is going to 1.5. Lactic acid has not been elevated. Urinalysis somewhat unremarkable from microscopic standpoint. Blood cultures collected at the time of admission, now with 1 out 2 growth of gram-negative rods, had empirically been placed on antimicrobials with piperacillin and tazobactam. She is mildly encephalopathic. She feels poorly. She states she is chilling, some mild degree of dyspnea. Hemodynamically, she has improved with fluid resuscitation. ALLERGIES: LISTED TO IODINE AND CODEINE. CURRENT MEDICATIONS: Include Zosyn 3.375 IV every 12 hours, atorvastatin, insulin, fluticasone proprionate, loratadine, apixaban, clopidogrel, tacrolimus, levalbuterol, pantoprazole, ondansetron, pregabalin, mycophenolate, carvedilol, p.r.n. analgesics and antiemetics. PAST MEDICAL HISTORY: As described above, diabetes mellitus type 1, has widespread vasculopathy, has known coronary artery disease with previous bypass grafting, end-stage renal disease status post kidney transplantation in 2011, previous stroke, has hypertension, anxiety, depression, previous cholecystectomy and history of varicella zoster. SOCIAL HISTORY: Nonsmoker, no ethanol, no illicit drug use. FAMILY HISTORY: [place] [address] CONSULTATION Name: DIONI RANDHAWA Room: [address]#: [id number] Admission: 12/26/18 Attend Phys: Sparkle Bill MD Discharge: Date of : 54 Report #: [id number] REVIEW OF SYSTEMS: As noted above, otherwise unremarkable with the exception noted in history of present illness. PHYSICAL EXAMINATION: GENERAL: She appears somewhat chronically ill, in moderate distress. She is undernourished, perhaps mildly encephalopathic. She has shown evidence of chilling. VITAL SIGNS: T-max overnight 102, more recently 99.3, pulse 85, respirations 16 and blood pressure 114/37. SKIN: Warm, dry. No diaphoresis. HEENT: Normocephalic. Extraocular muscles are intact. NECK: Supple. LUNGS: Diminished breath sounds. Borderline tachypneic. I do not appreciate any crackles or rhonchi. HEART: Regular. I do not appreciate any murmur. ABDOMEN: Soft, nontender. There are no peritoneal signs. GENITOURINARY AND RECTAL: Deferred. LABORATORY DATA: Blood cultures, 1 out of 2 with gram-negative rods. Sed rate of 68. Most recent glucose is down from 300 to 158. Prealbumin of 8.7. Electrolytes: Sodium 143, potassium 3.5, chloride 112, bicarbonate is 22, anion gap of 9, BUN and creatinine of 14 and 1.7, it is up from 1.3. LFTs are unremarkable. Albumin of 2.2, total protein of 5.4. Estimated GFR of 36. Random cortisol was 20.9. A CT of the abdomen and pelvis showed no acute process, right lower quadrant renal transplant, severe atherosclerotic disease. Lactic acid of 0.7. ABGs: pH of 7.353, pCO2 of 33.5, pO2 of 77 and was on room air. ASSESSMENT AND PLAN: Gram-negative septicemia, it is not entirely clear as to the source. Urinalysis shows a very little pyuria and bacteriuria. We will await identification of the organism, you know she certainly could be an enteric as well. We will continue the piperacillin and tazobactam. She is certainly immunosuppressed would be at risk for more severe illness, although her hemodynamics have slightly improved, but likely will be able to transition to oral antibiotics prior to her discharge, which I would suspect to be within a few days. We will monitor expectantly. Certainly at risk for nosocomial related infectious complications. <ELECTRONICALLY SIGNED> By: Vidal Egan MD 12/28/18 1045 [id number] [id number] Egan MD /nt
--- NOTE | 2018-12-28 15:29 | NUR ---
ASSESSMENT COMPLETE. PT IS ALERT AND ORIENTED X4. FLAT AND SAD MOST OF THE DAY. PT TOLERATING REGULAR DIET, ACCU CHECK ACHS. IV FLUIDS INFUSING. PT IS ON ROOM AIR, VSS. PHOSPHORUS REPLACED PER NEPHROLOGY ORDERS. PT DENIES ANY PAIN. Q2 TURN. USES BEDPAN NEEDED. SKIN W/D/I. PT HAS LEFT LIMB ALERT FOR FISTULA. SEE ASSESSMENT AND VITALS FOR OTHER DETAILS. CALL LIGHT WITHIN REACH, WILL CONTINUE PLAN OF CARE
--- NOTE | 2018-12-29 03:20 | NUR ---
ASSUMED CARE OF PT AT 1900. PT IS ALERT AND ORIENTED. VSS. PERRLA. NO COMPLAINTS OF PAIN. PT IS IN SINUS RYTHM ON THE TELEMETRY. PT IS RESTING COMFORTABLY IN BED. RESPIRATIONS ARE EVEN AND NONLABORED. WILL CONTINUE TO MONITOR PT.
[2018-12-29 04:00] VITALS: BP 151/54
[2018-12-29 05:50] LABS: CALCIUM 8.2 mg/dL (8.5-10.1); CREATININE 2.2 mg/dL (0.6-1.3); POTASSIUM 3.4 mmol/L (3.5-5.1)
[2018-12-29 08:55] VITALS: BP 164/70
--- NOTE | 2018-12-29 09:30 | NUR ---
ASSUME CARE AFTER REPORT APPROX 0730. [facility], ABLE TO EXPRESS NEEDS TO STAFF. GOLD LETTERER IN PLACE, SR 1D. O2 SAT 95% RA. PATIENT WORKING WITH PHYSICAL THERAPIST. NONSKID SOCKS TO BLE. PATIENT WITHOUT C/O PAIN, SOA, N/V OR OTHER DISTRESS. HOURLY ROUNDING FOR SAFETY AND PATIENT NEEDS.
[2018-12-29 12:43] VITALS: BP 145/64
--- NOTE | 2018-12-29 14:00 | NUR ---
CONTACTED LAB STAFF TO ASK ABOUT PROGRAF LAB RESULTS. LAB STAFF INFORMS THAT THIS LAB IS SENT TO [facility] AND IS A 2-3 DAY TURN AROUND.
[2018-12-29 18:01] VITALS: BP 99/48
[2018-12-29 19:35] VITALS: BP 139/60
[2018-12-29 23:50] VITALS: BP 130/48
[2018-12-30 04:19] VITALS: BP 150/61
[2018-12-30 05:08] LABS: POTASSIUM 3.7 mmol/L (3.5-5.1)
--- NOTE | 2018-12-30 06:00 | NUR ---
ASSUMED CARE OF PT AT 1900. PT IS ALERT AND ORIENTED. VSS. PERRLA. NO COMPLAINTS OF PAIN. PT IS INCONTINANT AT TIMES. PT IS IN SINUS RYTHM ON THE TELEMETRY. PT IS RESTING COMFORTABLY IN BED. RESPIRATIONS ARE EVEN AND NONLABORED. WILL CONTINUE TO MONITOR PT.
--- NOTE | 2018-12-30 07:20 | NUR ---
PATIENT'S DPOA'S NAME IS GREG RANDHAWA, . JAYDA YARBROUGH'S PHONE CORRECT NUMBER IS [phone].
[2018-12-30 07:43] VITALS: BP 160/59
--- NOTE | 2018-12-30 09:45 | NUR ---
ASSUMED CARE AFTER REPORT APPROX 0730. [facility], ABLE TO EXPRESS NEEDS TO STAFF. PRODUCTION ESTIMATOR IN PLACE, SR, 1ST DEGREE AV BLOCK. O2 SAT 95% RA. PATIENT C/O NAUSEA. PRN ZOFRAN GIVEN PER EMAR. UP WITH MAX ASSIST FOR TRANSFERS/AMBULATION. CALL LIGHT WITHIN REACH. HOURLY ROUNDING FOR SAFETY AND PATIENT NEEDS.
[2018-12-30 11:13] VITALS: BP 178/62
[2018-12-30 16:06] VITALS: BP 146/89
[2018-12-30 20:00] VITALS: BP 154/60
[2018-12-31 01:37] LABS: URINE BILIRUBIN NEGATIVE (Negative); URINE BLOOD TRACE (Negative); URINE CLARITY CLEAR; URINE COLOR YELLOW; URINE GLUCOSE-RANDOM 3+ (Negative); URINE KETONES NEGATIVE (Negative); URINE LEUKOCYTES NEGATIVE (Negative); URINE NITRITE NEGATIVE (Negative); URINE PROTEIN NEGATIVE (Negative); URINE SPECIFIC GRAVITY <= 1.005 (1.005-1.030); URINE UROBILINOGEN 0.2 E.U./dl (0.2-1.0)
--- NOTE | 2018-12-31 04:13 | NUR ---
ASSUMED PATIENT CARE AT 1900. ASSESSMENT COMPLETED CHARTED. VSS. SR ON MONITOR. HOURLY ROUNDING IN PLACE FOR PATIENT SAFETY. CLWR
[2018-12-31 04:45] VITALS: BP 151/52
--- NOTE | 2018-12-31 07:04 | NUR ---
I HAVE REVIEWED AND AGREE WITH NURSING ASSESSMENT COMPLETED BY PETAR ZIMMERMAN RN.
[2018-12-31 09:16] VITALS: BP 136/48
[2018-12-31 11:09] LABS: ABSOLUTE EOSINOPHILS 0.1 thou/uL (0.0-0.7); ABSOLUTE LYMPHOCYTES 0.9 thou/uL (0.8-5.3); ABSOLUTE MONOCYTES 0.7 thou/uL (0.0-1.2); ABSOLUTE NEUTROPHILS 5.1 thou/uL (1.6-8.1); BASOPHILS 0.3 %; EOSINOPHILS 0.9 %; HEMATOCRIT 31.4 % (37.0-47.0); HEMOGLOBIN 10.3 gm/dL (12.0-15.0); LYMPHOCYTES 13.1 %; MCH 28.9 pg (26.0-34.0); MCHC 32.7 g/dL (28.0-37.0); MCV 88.3 fL (80.0-100.0); MONOCYTES 10.3 %; MPV 9.4 fl. (7.2-11.1); NUCLEATED RBCS 0 /100WBC; PLATELET COUNT* 184 thou/uL (150-400); POLYS 75.4 %; RBC 3.56 mil/uL (4.20-5.00); RDW-CV 15.7 % (10.5-14.5); WBC 6.7 thou/uL (4.0-11.0)
[2018-12-31 11:17] LABS: ALBUMIN 1.9 g/dL (3.4-5.0); CALCIUM 8.3 mg/dL (8.5-10.1); TOTAL BILIRUBIN 0.4 mg/dL (<0.1-1.0); TOTAL PROTEIN 5.7 g/dL (6.4-8.2)
[2018-12-31 12:11] VITALS: BP 150/55
--- NOTE | 2018-12-31 14:41 | NUR ---
CONTINUE TO FOLLOW, MET WITH PT AND SON/WOODROW WHO SHE LIVES WITH. PT STATES SHE IS IMPROVING WITH THERAPY, STILL USING WALKER. PT ONLY HAS CANE AT HOME. ENCOURAGED HER TO DISCUSS WITH THERAPY TOMORROW TO SEE IF SHE IS SAFE WITH A CANE. SON IS IN A SLING WITH A SHOULDER INJURY AND PT WILL NEED TO BE FAIRLY INDEPENDENT. ENCOURAGED PT TO F/U WITH HER PCP DR ROONEY RE: USING HER VEGO AGAIN AND SHE UNDERSTOOD. ALSO CONFIRMED PT HAS A TALKING GLUCOMETER AT HOME BUT LOST HER LANCET DEVICE IN THE HOUSE, SON TO LOOK FOR IT. PT HAS HAD HH IN PAST, CANNOT REMEMBER NAME OF AGENCY BUT IS AGREEABLE TO HH AGAIN AND PLANS TO GO HOME AT [place]. STATES HER DTR IS COMING IN FROM [place] TO STAY WITH HER. WILL FOLLOW
[2018-12-31 16:00] VITALS: BP 172/64
--- NOTE | 2018-12-31 16:54 | NUR ---
LIYA WITH CUSTOMER RELATIONS SPOKE WITH PT WHO WANTED A SHOWER HOWEVER OT GOT PT UP TO BEDISDE TODAY AND COMPLETED BED BATH. ASSITED PT TO CHAIR WITH NURSE AID THERESA TWO PERSON ASSIST THIS AM. CHANGED BEDDING AND CLEANED PT USING BOTTOM AND BACKSIDE WIPE WITH FIT RITE WIPES. PT WANTS TO SIT IN SHOWER ON CHAIR AND CLEAN HERSELF HOWEVER I DO NOT THINK THIS IS SAFE GIVEN MY ASESSMENT OF THE PT'S WEAKNESS. MY OPTION WOULD BE FOR OT TO TRY AND SIT PT IN SHOWER CHAIR TOMORROW WHILE WORKING ANOTHER DAY WITH OT AND ANOTHER DAY TO GET STRONGER. EXPRESS THIS WISH THAT SHE WAIT UNTIL THE AM TO SIT IN SHOWER CHAIR THE SAFEST BEST OPTION HOWEVER PT REFUSES. LIYA WITH CUSTOMER SERVICE SPOKE WITH PT AGAIN AND INSTRUCTED THERESA NURSING AID TO PLACE PT IN SHOWER CHAIR. PT DOES NOT WISH TO HAVE A MALE THERE TO ASSIST WITH SHOWER. I AGAIN INFORMED PATIENT AND LIYA THAT THIS IS NOT THE SAFEST OPTION AT THIS TIME AND THAT THERESA WILL BE TAKING PT TO SIT IN SHOWER CHAIR UNDER THE INSTRUCTION OF LIYA FROM CUSTOMER SERVICE.
[2018-12-31 20:00] VITALS: BP 166/64
[2018-12-31 23:45] VITALS: BP 170/56
[2019-01-01 04:00] VITALS: BP 144/53
--- NOTE | 2019-01-01 05:19 | NUR ---
ASSUMED PATIENT CARE AT 1900. ASSESSMENT COMPLETED CHARTED. VSS. PATIENT IS SR ON MONITOR. HOURLY ROUNDING IN PLACE FOR PATIENT SAFETY. CLWR.
[2019-01-01 05:27] LABS: ALBUMIN 1.8 g/dL (3.4-5.0); CALCIUM 8.5 mg/dL (8.5-10.1); CREATININE 1.6 mg/dL (0.6-1.3); POTASSIUM 3.6 mmol/L (3.5-5.1); TOTAL BILIRUBIN 0.3 mg/dL (<0.1-1.0); TOTAL PROTEIN 5.3 g/dL (6.4-8.2)
--- NOTE | 2019-01-01 06:30 | NUR ---
I HAVE REVIEWED AND AGREE WITH NURSING ASSESSMENT COMPLETED BY PETAR ZIMMERMAN RN. NEGATIVE SEPSIS SCREENING THIS SHIFT.
[2019-01-01 08:00] VITALS: BP 151/69
--- NOTE | 2019-01-01 11:29 | NUR ---
ASSUMED PT CARE AT 0800, AOX4, UP SBA, O2 SAT 90'S RA. TRACING SR ON TELE. PT COMPLAINS OF CHRONIC BACK PAIN. PT WANTS TO GO HOME. VSS, AM ASSESSMENT CHARTED, MEDS GIVEN PER MAR, CALL LIGHT WITHIN REACH, WILL CONTINUE TO MONITOR.
[2019-01-01 12:12] VITALS: BP 145/57
[2019-01-01 12:28] VITALS: BP 145/57
--- NOTE | 2019-01-01 15:49 | NUR ---
DISCHARGE PLAN DISCUSSED WITH THE PT. MEDICATION SCRIPT/PACKET GIVEN.IV, TELE REMOVED. REMINDED TO FOLLOW UP PCP, ID, VASCULAR. ALL BELONGINGS PACKED AND CHECK. LEFT THE UNIT AT 1500.
--- NOTE | 2019-01-01 16:27 | NUR ---
Pt to dc home with family today. GRACY discussed HH services to follow with pt and pt in agreement with plan and wanted HH at home. GRACY faxed referral, orders, med list to [facility].
--- NOTE | 2019-01-10 05:09 | CON ---
[address] [address] CONSULTATION Name: DIONI FARIA Room: [address] IN M.R.#: [id number] Admission: 12/26/18 Attend Phys: Sparkle Bill MD Discharge: 01/01/19 Date of : 54 Report #: [id number] THIS REPORT FOR: //name// CC: Sparkle Pichardo DATE OF SERVICE: 12/27/2018 NEPHROLOGY CONSULTATION CONSULTING PHYSICIAN: Dr. Bill. REASON FOR NEPHROLOGY CONSULTATION: Management of acidosis. Also, has history of chronic kidney disease stage 3 and history of renal transplant. CHIEF COMPLAINT: The patient was found to be very weak and she was having nausea and vomiting. HISTORY OF PRESENT ILLNESS: This is a 68-year-old female who has past medical history of end-stage renal disease, on hemodialysis in the past and she was diagnosed with end-stage renal disease in 2008, history of donor kidney transplant in 2011. No history of rejection, has been on CellCept and Prograf, follows with me in the office, last saw me in August this year, came in because she was having nausea and vomiting, and she was not able to get up from her bed and she was just having generalized weakness. She was found to have hyperglycemia, hypertension and was found to be actually in diabetic ketoacidosis when she was brought here. She was treated with IV fluids, given insulin drip and her anion gap has closed now. Her creatinine was 1.3 when she came in and now it is around 1.5. She is still having some nausea. She has been taken off of her lisinopril because of multiple episodes of dehydration in the past. She uses torsemide only as needed. Here her blood cultures are also growing gram-negative rods and she was having some urinary incontinence before she came in here and has had recurrent UTIs in the past. She currently also looks like she has a UTI. Her blood pressures are maintained. She is hemodynamically stable. REVIEW OF SYSTEMS: She is still having nausea and vomiting, otherwise as mentioned in the review of systems. Otherwise 10-point review of systems are negative. ALLERGIES: IODINE AND [id number]. PAST MEDICAL HISTORY: Includes diabetic nephropathy, chronic kidney disease stage 3, history of end-stage renal disease diagnosed in 2008 and in 2011 she had donor renal transplant at [facility]. No history of rejection. Renal cyst, recurrent UTIs, benign hypertensive chronic kidney disease, anxiety, [place] [address] CONSULTATION Name: DIONI RANDHAWA Room: [address]#: [id number] Admission: 12/26/18 Attend Phys: Sparkle Bill MD Discharge: 01/01/19 Date of : 54 Report #: [id number] depression, shingles. Peripheral arterial disease. PAST SURGICAL HISTORY: Includes kidney transplant in 2011, CABG in 2001, cholecystectomy, fistula in left arm, stent in the legs. CURRENT MEDICATIONS: Include torsemide 10 mg as needed, methimazole, carvedilol, Eliquis, Humalog, Lantus, Lyrica, magnesium oxide, Plavix, Protonix, simvastatin, tacrolimus 4 mg b.i.d. according to the patient's chart, and Myfortic 540 mg b.i.d. FAMILY HISTORY: It was reviewed and ____ history of diabetes in her mother. SOCIAL HISTORY: She does not smoke or take alcohol or use illicit drugs. PHYSICAL EXAMINATION: VITAL SIGNS: Blood pressure is 145/82, temperature 36.6, respiratory rate was 23, pulse rate was 115, and pulse ox 99% and she is on 2 liters of oxygen by nasal cannula. GENERAL: She is sitting up in bed. She is having some nausea. She is alert and oriented x 3. HEAD AND EYES: Atraumatic, normocephalic. EARS, NOSE, AND THROAT: Mucous membranes are moist. NECK: There is no JVD. CHEST: Bilaterally clear to auscultation posteriorly. No crackles or wheezing. CARDIOVASCULAR: S1, S2 normal. No murmurs. ABDOMEN: Soft, is nondistended, nontender. Bowel sounds are present. EXTREMITIES: No edema of lower extremities. There is prior dialysis access in the left arm has no bruit or thrill. NEUROLOGICAL FUNCTION: Gross neurological function is intact. PSYCHIATRIC: Mood and affect seems to be normal. LABORATORY DATA: Hemoglobin is 11.1. Her potassium is 4.8. Her CO2 is 19, sodium is 142, creatinine is 1.5 and other labs were reviewed. IMAGING: Chest x-ray was reviewed. ASSESSMENT: 1. Acute kidney injury on chronic kidney disease stage 3. The patient has a history of donor renal transplant in 2011, on chronic immunosuppression. Baseline creatinine is around 1.3 and creatinine is 1.5 at this time. Likely acute kidney injury is in the setting of intravascular volume depletion. She does use torsemide as needed at home. Her UA showed 2+ protein, 3+ ketones, 0-2 rbc's per high power field and 1-10 bacteria per high power field. There is no renal imaging available right now. 2. It seems like she has urinary tract infection, low tract, which has caused bacteremia. She has gram-negative rods in the blood. Antibiotic management is [place] [address] CONSULTATION Name: DIONI RANDHAWA Room: [address] IN M.R.#: [id number] Admission: 12/26/18 Attend Phys: Sparkle Bill MD Discharge: 01/01/19 Date of : 54 Report #: [id number] as per primary team. She has received a dose of Zosyn when she came to the ER yesterday. 3. Chronic immunosuppression because of a history of a donor renal transplant. 4. Diabetic ketoacidosis seems to have resolved, primary team is managing that. 5. Hypertension, blood pressure is controlled. 6. History of diabetes type 2, she was in diabetic ketoacidosis when she came in. PLAN: 1. I will continue IV fluids, will decrease the rate to 75 mL an hour, half normal saline with 50 mEq of sodium bicarbonate. 2. Resume her immunosuppression, we will check a Prograf level tomorrow. 3. She is not on lisinopril at home and we should not continue it right now as well. I have stopped it. 4. Treatment for her urinary tract infection and bacteremia as per primary team. 5. Strict I's and O's. 6. Check a bladder scan if possible. Thank you for this consultation. We will continue to follow with you. Try to keep his mean arterial pressure around 65-70. Discussed with the patient's nurse as well as the patient. <ELECTRONICALLY SIGNED> By: Renay Yu MD 01/10/19 0509 1006 [id number] Yu MD /nt
== END 2019-01-01 15:00 | disposition home health service (06) | DRG 871 ==
LOC: M.ERS 16:42 → M.TBA-ER 18:40 → M.2W 18:40 → M.ICU 18:40 → M.2W 12-27 13:15
PROVIDERS: Internal Medicine; Internal Medicine Nephrology; Personal Emergency Response Attendant; ADMIT Internal Medicine
DX: A41.59 Other Gram-negative sepsis (principal); E10.10 Type 1 diabetes mellitus with ketoacidosis without coma; N17.0 Acute kidney failure with tubular necrosis; E43 Unspecified severe protein-calorie malnutrition; Z94.0 Kidney transplant status; N39.0 Urinary tract infection, site not specified; R65.20 Severe sepsis without septic shock; I12.9 Hypertensive chronic kidney disease with stage 1 through stage 4 chronic kidney disease, or unspecified chronic kidney disease; N18.3 Chronic kidney disease, stage 3 (moderate); E10.51 Type 1 diabetes mellitus with diabetic peripheral angiopathy without gangrene; F32.9 Major depressive disorder, single episode, unspecified; F41.9 Anxiety disorder, unspecified; K52.9 Noninfective gastroenteritis and colitis, unspecified; I70.201 Unspecified atherosclerosis of native arteries of extremities, right leg; B96.1 Klebsiella pneumoniae [K. pneumoniae] as the cause of diseases classified elsewhere; I25.10 Atherosclerotic heart disease of native coronary artery without angina pectoris; Z95.1 Presence of aortocoronary bypass graft; Z86.73 Personal history of transient ischemic attack (TIA), and cerebral infarction without residual deficits; Z90.49 Acquired absence of other specified parts of digestive tract; Z68.32 Body mass index [BMI] 32.0-32.9, adult; Z95.820 Peripheral vascular angioplasty status with implants and grafts; Z79.01 Long term (current) use of anticoagulants; Z79.02 Long term (current) use of antithrombotics/antiplatelets; Z79.4 Long term (current) use of insulin; Z79.51 Long term (current) use of inhaled steroids; Z79.899 Other long term (current) drug therapy; Z88.5 Allergy status to narcotic agent; Z91.041 Radiographic dye allergy status; Z83.3 Family history of diabetes mellitus; Z82.3 Family history of stroke; Z82.49 Family history of ischemic heart disease and other diseases of the circulatory system; Z23 Encounter for immunization

== ENCOUNTER → 2019-02-04 | Outpatient (CLI) | payer OTHER | LOC: M.ULTRA 13:28 | DX: M54.5 Low back pain (principal) ==

== ENCOUNTER → 2019-02-06 | Outpatient (CLI) | payer OTHER | LOC: M.WC 08:00 | DX: E11.621 Type 2 diabetes mellitus with foot ulcer (principal); I70.234 Atherosclerosis of native arteries of right leg with ulceration of heel and midfoot; L89.612 Pressure ulcer of right heel, stage 2; L97.412 Non-pressure chronic ulcer of right heel and midfoot with fat layer exposed; L84 Corns and callosities; E11.22 Type 2 diabetes mellitus with diabetic chronic kidney disease; N18.6 End stage renal disease; E78.5 Hyperlipidemia, unspecified; F41.9 Anxiety disorder, unspecified; Z99.2 Dependence on renal dialysis; Z95.1 Presence of aortocoronary bypass graft; Z90.49 Acquired absence of other specified parts of digestive tract; Z79.4 Long term (current) use of insulin; Z94.0 Kidney transplant status; Z86.73 Personal history of transient ischemic attack (TIA), and cerebral infarction without residual deficits ==

== ENCOUNTER → 2019-02-13 | Outpatient (CLI) | payer OTHER | LOC: M.WC 04:58 | DX: E11.621 Type 2 diabetes mellitus with foot ulcer (principal); I70.234 Atherosclerosis of native arteries of right leg with ulceration of heel and midfoot; L89.612 Pressure ulcer of right heel, stage 2; L97.412 Non-pressure chronic ulcer of right heel and midfoot with fat layer exposed; E11.22 Type 2 diabetes mellitus with diabetic chronic kidney disease; N18.6 End stage renal disease; E78.5 Hyperlipidemia, unspecified; F41.9 Anxiety disorder, unspecified; Z86.73 Personal history of transient ischemic attack (TIA), and cerebral infarction without residual deficits; Z99.2 Dependence on renal dialysis; Z94.0 Kidney transplant status ==

== ENCOUNTER → 2019-02-20 | Outpatient (CLI) | payer OTHER | LOC: M.WC 05:45 | DX: E11.621 Type 2 diabetes mellitus with foot ulcer (principal); I70.234 Atherosclerosis of native arteries of right leg with ulceration of heel and midfoot; L89.612 Pressure ulcer of right heel, stage 2; L97.412 Non-pressure chronic ulcer of right heel and midfoot with fat layer exposed; E11.22 Type 2 diabetes mellitus with diabetic chronic kidney disease; N18.6 End stage renal disease; E78.5 Hyperlipidemia, unspecified; F41.9 Anxiety disorder, unspecified; Z94.0 Kidney transplant status; Z99.2 Dependence on renal dialysis; Z86.73 Personal history of transient ischemic attack (TIA), and cerebral infarction without residual deficits ==

== ENCOUNTER → 2019-02-27 | Outpatient (CLI) | payer OTHER | LOC: M.WC 04:01 | DX: E11.621 Type 2 diabetes mellitus with foot ulcer (principal); I70.234 Atherosclerosis of native arteries of right leg with ulceration of heel and midfoot; L97.412 Non-pressure chronic ulcer of right heel and midfoot with fat layer exposed; E11.622 Type 2 diabetes mellitus with other skin ulcer; L89.512 Pressure ulcer of right ankle, stage 2; L97.311 Non-pressure chronic ulcer of right ankle limited to breakdown of skin; L84 Corns and callosities; E11.22 Type 2 diabetes mellitus with diabetic chronic kidney disease; N18.6 End stage renal disease; E78.5 Hyperlipidemia, unspecified; E05.90 Thyrotoxicosis, unspecified without thyrotoxic crisis or storm; F41.9 Anxiety disorder, unspecified; Z99.2 Dependence on renal dialysis; Z94.0 Kidney transplant status; Z86.73 Personal history of transient ischemic attack (TIA), and cerebral infarction without residual deficits ==

== ENCOUNTER → 2019-03-06 | Outpatient (CLI) | payer OTHER | LOC: M.WC 05:15 | DX: E11.621 Type 2 diabetes mellitus with foot ulcer (principal); I70.234 Atherosclerosis of native arteries of right leg with ulceration of heel and midfoot; L89.612 Pressure ulcer of right heel, stage 2; L97.412 Non-pressure chronic ulcer of right heel and midfoot with fat layer exposed; E11.622 Type 2 diabetes mellitus with other skin ulcer; L89.512 Pressure ulcer of right ankle, stage 2; L97.311 Non-pressure chronic ulcer of right ankle limited to breakdown of skin; I70.612 Atherosclerosis of nonbiological bypass graft(s) of the extremities with intermittent claudication, left leg; E11.22 Type 2 diabetes mellitus with diabetic chronic kidney disease; N18.6 End stage renal disease; E78.5 Hyperlipidemia, unspecified; E05.90 Thyrotoxicosis, unspecified without thyrotoxic crisis or storm; F41.9 Anxiety disorder, unspecified; Z99.2 Dependence on renal dialysis; Z94.0 Kidney transplant status; Z86.73 Personal history of transient ischemic attack (TIA), and cerebral infarction without residual deficits ==

== ENCOUNTER → 2019-03-13 | Outpatient (CLI) | payer OTHER | LOC: M.WC 05:20 | DX: E11.621 Type 2 diabetes mellitus with foot ulcer (principal); I70.64 Atherosclerosis of nonbiological bypass graft(s) of the left leg with ulceration; L89.612 Pressure ulcer of right heel, stage 2; L97.411 Non-pressure chronic ulcer of right heel and midfoot limited to breakdown of skin; E11.622 Type 2 diabetes mellitus with other skin ulcer; L89.512 Pressure ulcer of right ankle, stage 2; L97.311 Non-pressure chronic ulcer of right ankle limited to breakdown of skin; I70.612 Atherosclerosis of nonbiological bypass graft(s) of the extremities with intermittent claudication, left leg; E11.22 Type 2 diabetes mellitus with diabetic chronic kidney disease; N18.6 End stage renal disease; E78.5 Hyperlipidemia, unspecified; E05.90 Thyrotoxicosis, unspecified without thyrotoxic crisis or storm; Z99.2 Dependence on renal dialysis; Z86.73 Personal history of transient ischemic attack (TIA), and cerebral infarction without residual deficits ==

== ENCOUNTER → 2019-03-21 | Outpatient (CLI) | payer OTHER | LOC: M.WC 01:43 | DX: E11.621 Type 2 diabetes mellitus with foot ulcer (principal); I70.634 Atherosclerosis of nonbiological bypass graft(s) of the right leg with ulceration of heel and midfoot; L89.612 Pressure ulcer of right heel, stage 2; L97.412 Non-pressure chronic ulcer of right heel and midfoot with fat layer exposed; I70.612 Atherosclerosis of nonbiological bypass graft(s) of the extremities with intermittent claudication, left leg; E11.22 Type 2 diabetes mellitus with diabetic chronic kidney disease; N18.6 End stage renal disease; E78.5 Hyperlipidemia, unspecified; E05.90 Thyrotoxicosis, unspecified without thyrotoxic crisis or storm; F41.9 Anxiety disorder, unspecified; Z99.2 Dependence on renal dialysis; Z94.0 Kidney transplant status; Z86.73 Personal history of transient ischemic attack (TIA), and cerebral infarction without residual deficits ==

== ENCOUNTER → 2019-03-28 | Outpatient (CLI) | payer OTHER | LOC: M.WC 09:55 | DX: I70.234 Atherosclerosis of native arteries of right leg with ulceration of heel and midfoot (principal); E11.621 Type 2 diabetes mellitus with foot ulcer; L89.613 Pressure ulcer of right heel, stage 3; L97.412 Non-pressure chronic ulcer of right heel and midfoot with fat layer exposed; I70.233 Atherosclerosis of native arteries of right leg with ulceration of ankle; E11.622 Type 2 diabetes mellitus with other skin ulcer; L89.512 Pressure ulcer of right ankle, stage 2; L97.311 Non-pressure chronic ulcer of right ankle limited to breakdown of skin; I70.612 Atherosclerosis of nonbiological bypass graft(s) of the extremities with intermittent claudication, left leg; E11.22 Type 2 diabetes mellitus with diabetic chronic kidney disease; N18.6 End stage renal disease; E78.5 Hyperlipidemia, unspecified; E05.90 Thyrotoxicosis, unspecified without thyrotoxic crisis or storm; F41.9 Anxiety disorder, unspecified; Z86.73 Personal history of transient ischemic attack (TIA), and cerebral infarction without residual deficits; Z99.2 Dependence on renal dialysis; Z79.4 Long term (current) use of insulin; Z94.0 Kidney transplant status ==

== ENCOUNTER → 2019-04-04 | Outpatient (CLI) | payer OTHER | LOC: M.WC 04:05 | DX: E11.621 Type 2 diabetes mellitus with foot ulcer (principal); I70.234 Atherosclerosis of native arteries of right leg with ulceration of heel and midfoot; L89.613 Pressure ulcer of right heel, stage 3; L97.411 Non-pressure chronic ulcer of right heel and midfoot limited to breakdown of skin; E11.622 Type 2 diabetes mellitus with other skin ulcer; L89.512 Pressure ulcer of right ankle, stage 2; L97.311 Non-pressure chronic ulcer of right ankle limited to breakdown of skin; I70.612 Atherosclerosis of nonbiological bypass graft(s) of the extremities with intermittent claudication, left leg; E11.22 Type 2 diabetes mellitus with diabetic chronic kidney disease; N18.6 End stage renal disease; E78.5 Hyperlipidemia, unspecified; E05.90 Thyrotoxicosis, unspecified without thyrotoxic crisis or storm; F41.9 Anxiety disorder, unspecified; Z94.0 Kidney transplant status; Z99.2 Dependence on renal dialysis; Z86.73 Personal history of transient ischemic attack (TIA), and cerebral infarction without residual deficits ==

== ENCOUNTER → 2019-04-18 | Outpatient (CLI) | payer OTHER | LOC: M.WC 04-11 10:00 | DX: E11.621 Type 2 diabetes mellitus with foot ulcer (principal); L89.613 Pressure ulcer of right heel, stage 3; L97.411 Non-pressure chronic ulcer of right heel and midfoot limited to breakdown of skin; I70.612 Atherosclerosis of nonbiological bypass graft(s) of the extremities with intermittent claudication, left leg; E11.22 Type 2 diabetes mellitus with diabetic chronic kidney disease; N18.6 End stage renal disease; E78.5 Hyperlipidemia, unspecified; E05.90 Thyrotoxicosis, unspecified without thyrotoxic crisis or storm; F41.9 Anxiety disorder, unspecified; Z99.2 Dependence on renal dialysis; Z94.0 Kidney transplant status; Z86.73 Personal history of transient ischemic attack (TIA), and cerebral infarction without residual deficits ==

== ENCOUNTER 2019-05-09 17:09 | Inpatient (IN) | payer OTHER ==
[2019-05-09] VITALS (7 sets, daily range): BP systolic 136–196; BP diastolic 61–85
[~2019-05-09] VITALS: Ht 165.1 cm; Wt 72.6 kg
[2019-05-09 18:04] LABS: ABSOLUTE LYMPHOCYTES 1.6 thou/uL (0.8-5.3); ABSOLUTE MONOCYTES 0.5 thou/uL (0.0-1.2); ABSOLUTE NEUTROPHILS 6.7 thou/uL (1.6-8.1); BASOPHILS 0.3 %; EOSINOPHILS 0.1 %; HEMATOCRIT 38.8 % (37.0-47.0); HEMOGLOBIN 12.6 gm/dL (12.0-15.0); LYMPHOCYTES 18.6 %; MCH 28.8 pg (26.0-34.0); MCHC 32.5 g/dL (28.0-37.0); MCV 88.7 fL (80.0-100.0); MONOCYTES 5.2 %; MPV 9.8 fl. (7.2-11.1); NUCLEATED RBCS 0 /100WBC; PLATELET COUNT* 249 thou/uL (150-400); POLYS 75.8 %; RBC 4.38 mil/uL (4.20-5.00); RDW-CV 15.5 % (10.5-14.5); WBC 8.8 thou/uL (4.0-11.0)
[2019-05-09 18:17] LABS: CALCIUM 8.8 mg/dL (8.5-10.1); CREATININE 1.9 mg/dL (0.6-1.3); POTASSIUM 4.3 mmol/L (3.5-5.1)
[2019-05-09 18:27] LABS: ALBUMIN 3.5 g/dL (3.4-5.0); MAGNESIUM 1.5 mg/dL (1.8-2.4); PHOSPHORUS* 3.1 mg/dL (2.5-4.9); TOTAL BILIRUBIN 1.3 mg/dL (<0.1-1.0); TOTAL PROTEIN 7.1 g/dL (6.4-8.2)
[2019-05-09 18:29] LABS: URINE BLOOD TRACE (Negative); URINE CLARITY CLEAR; URINE COLOR YELLOW; URINE GLUCOSE-RANDOM 2+ (Negative); URINE LEUKOCYTES-REFLEX NEGATIVE (Negative); URINE NITRITE-REFLEX NEGATIVE (Negative); URINE PROTEIN 1+ (Negative); URINE SPECIFIC GRAVITY 1.025 (1.005-1.030); URINE UROBILINOGEN 0.2 E.U./dl (0.2-1.0)
[2019-05-09 18:31] LABS: ICTOTEST (BILI CONFIRMATORY) Negative (Negative); URINE BILIRUBIN 1+ (Negative); URINE KETONES 3+ (Negative)
[2019-05-09 18:46] LABS: BE -7.6 mmol/L (-2 to +3); PCO2 31.7 mmHg (35.0-45.0); PO2 93.4 mmHg (75.0-100.0); pH 7.345 (7.340-7.450)
[2019-05-10] VITALS (30 sets, daily range): BP systolic 97–148; BP diastolic 36–68
[2019-05-10 02:47] LABS: ALBUMIN 3.1 g/dL (3.4-5.0); CALCIUM 8.5 mg/dL (8.5-10.1); CREATININE 1.7 mg/dL (0.6-1.3); MAGNESIUM 1.9 mg/dL (1.8-2.4); PHOSPHORUS* 2.1 mg/dL (2.5-4.9); POTASSIUM 3.7 mmol/L (3.5-5.1)
[2019-05-10 08:15] LABS: CALCIUM 8.2 mg/dL (8.5-10.1); CREATININE 1.5 mg/dL (0.6-1.3); MAGNESIUM 1.7 mg/dL (1.8-2.4); PHOSPHORUS* 1.7 mg/dL (2.5-4.9); POTASSIUM 4.5 mmol/L (3.5-5.1)
--- NOTE | 2019-05-10 09:44 | EKG ---
[place] [address] ELECTROCARDIOGRAM REPORT Name: DEJON RANDHAWARADHA Room: [address] ADM IN M.R.#: [id number] Admission: 05/09/19 Attend Phys: Dawood Ayers Discharge: Date of : 54 Date of Service: 05/09/191809 Report #: [id number] THIS REPORT FOR: //name// [facility] ED Test Date: 2019-05-09 Test Time: 18:10:16 Pat Name: DIONI RANDHAWA Department: Room: [facility] Gender: F Teletype Or [employer]ity[place] Keyboard Operator: [facility] : 1950 Requested By: Migue Jarvis Order Number: [id number] MD: Jonh Al Measurements Intervals [place] Rate: 103 P: 46 NV: 170 QRS: -10 QRSD: 102 T: 13 QT: 374 QTc: 490 Interpretive Statements Sinus tachycardia Abnormal R-wave progression, late transition Borderline prolonged QT interval Compared to ECG 10/04/2017 23:31:16 Sinus rate has increased Intraventricular conduction delay no longer present Electronically Signed On 05-10-2019 9:43:10 THERM[employer] by Jonh Al [email or web address] <ELECTRONICALLY SIGNED> By: Jonh Al MD, [facility] 05/10/19 0943 181 181 Jonh Al MD, [facility] /EPI
[2019-05-10 11:52] LABS: CALCIUM 8.3 mg/dL (8.5-10.1); CREATININE 1.3 mg/dL (0.6-1.3); MAGNESIUM 2.5 mg/dL (1.8-2.4); PHOSPHORUS* 2.9 mg/dL (2.5-4.9); POTASSIUM 4.4 mmol/L (3.5-5.1)
[2019-05-11] VITALS (9 sets, daily range): BP systolic 93–131; BP diastolic 37–57
[2019-05-11 02:11] LABS: GLYCOHEMOGLOBIN (HGB A1C) 10.9 % (4.8-5.6)
[2019-05-11 04:43] LABS: ABSOLUTE EOSINOPHILS 0.2 thou/uL (0.0-0.7); ABSOLUTE LYMPHOCYTES 2.1 thou/uL (0.8-5.3); ABSOLUTE MONOCYTES 0.4 thou/uL (0.0-1.2); ABSOLUTE NEUTROPHILS 3.1 thou/uL (1.6-8.1); BASOPHILS 0.5 %; HEMOGLOBIN 10.7 gm/dL (12.0-15.0); LYMPHOCYTES 36.2 %; MCH 29.4 pg (26.0-34.0); MCHC 33.3 g/dL (28.0-37.0); MCV 88.3 fL (80.0-100.0); MONOCYTES 7.4 %; MPV 9.3 fl. (7.2-11.1); NUCLEATED RBCS 0 /100WBC; PLATELET COUNT* 193 thou/uL (150-400); POLYS 52.9 %; RBC 3.63 mil/uL (4.20-5.00); RDW-CV 15.1 % (10.5-14.5); WBC 5.9 thou/uL (4.0-11.0)
[2019-05-11 05:07] LABS: ALBUMIN 2.5 g/dL (3.4-5.0); CALCIUM 7.9 mg/dL (8.5-10.1); CREATININE 1.3 mg/dL (0.6-1.3); MAGNESIUM 2.3 mg/dL (1.8-2.4); PHOSPHORUS* 3.1 mg/dL (2.5-4.9); POTASSIUM 4.1 mmol/L (3.5-5.1); TOTAL BILIRUBIN 0.4 mg/dL (<0.1-1.0); TOTAL PROTEIN 5.4 g/dL (6.4-8.2)
[2019-05-12] VITALS: BP 145/56
[2019-05-12 07:35] VITALS: BP 152/67
[2019-05-12 10:20] VITALS: BP 125/47
[2019-05-12 13:02] VITALS: BP 125/47
--- NOTE | 2019-05-15 10:24 | CON ---
[address] [address] CONSULTATION Name: DIONI RANDHAWA Room: [address] IN M.R.#: [id number] Admission: 05/09/19 Attend Phys: Albert Phillips Discharge: 05/12/19 Date of : 54 Report #: [id number] THIS REPORT FOR: //name// cc: Ivania Pichardo Linda J. DO ~ THIS REPORT FOR: //name// CC: Ivania Ayers DATE OF SERVICE: 05/10/2019 NEPHROLOGY CONSULTATION CONSULTING PHYSICIAN: Dr. Caban. REASON FOR NEPHROLOGY CONSULTATION: History of chronic kidney disease stage 3, history of donor renal transplant. REASON FOR ADMISSION: Nausea, vomiting and high blood glucose. HISTORY OF PRESENT ILLNESS: This is a 68-year-old female with past medical history of donor renal transplant in 2011, history of ESRD before that, now chronic kidney disease stage 3 and a baseline creatinine is 1.6-1.7. She follows with me in my office, who came in with nausea, vomiting and high blood glucose and she was found to be in DKA. She is on DKA protocol and currently out of DKA this morning. Her creatinine was 1.9 when she came in, but with hydration, creatinine is coming down and is 1.5 this morning and the patient feels a little bit better, but she is still having some nausea. Urine has no evidence of UTI, just 3+ ketones and 1+ protein. REVIEW OF SYSTEMS: As mentioned in history of present illness, otherwise 10-point review of systems done is negative. ALLERGIES: TO IODINE AND CODEINE. PAST MEDICAL AND SURGICAL HISTORY: Includes ESRD and history of donor kidney transplant in 2011 at [facility] [place], maintained on chronic immunosuppression, coronary artery disease, history of CABG in 2001, CVA, diabetes type 1, cholecystectomy, shingles in 2013, anxiety, depression, fistula in left arm and peripheral arterial disease with a stent in her leg. HOME MEDICATIONS: Include ondansetron, loratadine, fluticasone, pantoprazole, torsemide 10 mg a day, insulin glargine, simvastatin, tacrolimus 4 mg b.i.d., mycophenolate sodium 540 mg b.i.d., Plavix, carvedilol, pregabalin, magnesium oxide, apixaban, cefdinir, acetaminophen [place] [address] CONSULTATION Name: DIONI RANDHAWA Room: [address]#: [id number] Admission: 05/09/19 Attend Phys: Albert Phillips Discharge: 05/12/19 Date of : 54 Report #: [id number] FAMILY HISTORY: Noncontributory. SOCIAL HISTORY: Does not smoke or drink alcohol or use illicit drugs and lives at home. PHYSICAL EXAMINATION: VITAL SIGNS: Blood pressure is 146/68 and her pulse rate is 84, temperature is 36.9, respiratory rate is 14 and her pulse ox is 98% on room air. GENERAL: She is awake, alert, oriented x 3. HEAD AND EYES: Atraumatic, normocephalic. EARS, NOSE, AND THROAT: Normal ears and nose. Mucous membranes are dry. NECK: No JVD. CHEST: Bilaterally clear to auscultation anteriorly. No crackles or wheezing. CARDIOVASCULAR: S1, S2 normal. No murmurs heard. ABDOMEN: Soft, nondistended, nontender. Bowel sounds are present. LOWER EXTREMITIES: There is no lower extremity edema. NEUROLOGICAL FUNCTION: Gross neurological function is intact. PSYCHIATRIC: Mood and affect seems to be normal. LABORATORY DATA: Her white count is 8.8, her hemoglobin is 12.6 and platelet count is 249. Sodium is 144, potassium is 4.5, BUN 22 and creatinine is 1.5. Other labs were reviewed. IMAGING: Acute abdominal series done yesterday on admission showed nonspecific bowel gas patterns. ASSESSMENT: 1. Acute kidney injury on chronic kidney disease stage 3, baseline creatinine is 1.6-1.7. She has a history of donor kidney transplant and this was in 2011, and acute kidney injury is in the setting of intravascular volume depletion and diabetic ketoacidosis, and she does take torsemide at home. 2. History of donor renal transplant in 2011, on chronic immunosuppressive therapy with Myfortic and tacrolimus. 3. Hypomagnesemia. 4. Diabetic ketoacidosis, history of diabetes type 1. 5. Hypertension. PLAN: 1. She is out of DKA now, but she is still on insulin protocol, so I will go ahead and change the IV fluids to D5 half normal saline at 100 mL an hour based upon her labs. 2. Magnesium should be replaced, continue her magnesium oxide, daily supplementation of 400 mg a day as well. 3. I reordered her immunosuppressive agents and if she continues to stay in the hospital for another day or two, then a Prograf level should be checked. [address] [address] CONSULTATION Name: DIONI RANDHAWA Room: [address] IN .R.#: [id number] Admission: 05/09/19 Attend Phys: Albert Phillips Discharge: 05/12/19 Date of : 54 Report #: [id number] 4. Currently, creatinine is back to baseline. 5. Strict I's and O's. 6. Hold torsemide currently because of intravascular volume depletion. Thank you for this consultation. We will continue to follow with you. Discussed with the patient and the patient's nurse. <ELECTRONICALLY SIGNED> By: Renay Yu MD 05/15/19 [phone] [id number] Yu MD /nt
== END 2019-05-12 13:04 | disposition home health service (06) | DRG 698 ==
LOC: M.ERS 17:09 → M.TBA-ER 18:48 → M.ERS 18:48 → M.TBA-ER 21:18 → M.ICU 21:18 → M.ORTHSURG 05-11 09:23
PROVIDERS: Emergency Medicine; Family Medicine; ADMIT Internal Medicine
DX: T86.19 Other complication of kidney transplant (principal); E11.00 Type 2 diabetes mellitus with hyperosmolarity without nonketotic hyperglycemic-hyperosmolar coma (NKHHC); E11.10 Type 2 diabetes mellitus with ketoacidosis without coma; N17.9 Acute kidney failure, unspecified; E44.0 Moderate protein-calorie malnutrition; Z94.0 Kidney transplant status; E86.0 Dehydration; N18.3 Chronic kidney disease, stage 3 (moderate); Z96.89 Presence of other specified functional implants; F41.9 Anxiety disorder, unspecified; F32.9 Major depressive disorder, single episode, unspecified; E83.42 Hypomagnesemia; E11.22 Type 2 diabetes mellitus with diabetic chronic kidney disease; E11.51 Type 2 diabetes mellitus with diabetic peripheral angiopathy without gangrene; I12.9 Hypertensive chronic kidney disease with stage 1 through stage 4 chronic kidney disease, or unspecified chronic kidney disease; E78.5 Hyperlipidemia, unspecified; E11.65 Type 2 diabetes mellitus with hyperglycemia; I25.10 Atherosclerotic heart disease of native coronary artery without angina pectoris; Z95.1 Presence of aortocoronary bypass graft; Z90.49 Acquired absence of other specified parts of digestive tract; Z86.73 Personal history of transient ischemic attack (TIA), and cerebral infarction without residual deficits; Z79.899 Other long term (current) drug therapy; Z79.01 Long term (current) use of anticoagulants; Z88.6 Allergy status to analgesic agent; Z79.4 Long term (current) use of insulin; Z99.2 Dependence on renal dialysis; Z88.5 Allergy status to narcotic agent; Z91.048 Other nonmedicinal substance allergy status; Z82.49 Family history of ischemic heart disease and other diseases of the circulatory system; Z68.26 Body mass index [BMI] 26.0-26.9, adult

== ENCOUNTER → 2019-06-03 | Outpatient (CLI) | payer OTHER | LOC: M.ULTRA 11:22 | DX: R60.0 Localized edema (principal) ==

== ENCOUNTER 2019-11-06 18:12 | Inpatient (IN) | payer OTHER ==
[~2019-11-06] VITALS: Ht 180.3 cm; Wt 74.8 kg
[2019-11-06 18:17] VITALS: BP 168/76
[2019-11-06 19:17] LABS: BE -19.7 mmol/L (-2 to +3); PO2 106.4 mmHg (75.0-100.0)
[2019-11-06 19:22] LABS: PCO2 < 17.0 mmHg (35.0-45.0)
[2019-11-06 20:08] LABS: HEMATOCRIT 47.3 % (37.0-47.0); MCH 29.7 pg (26.0-34.0); MCHC 31.6 g/dL (28.0-37.0); MPV 10.6 fl. (7.2-11.1); NUCLEATED RBCS 0 /100WBC; PLATELET COUNT* 303 thou/uL (150-400); RBC 5.04 mil/uL (4.20-5.00); RDW-CV 15.5 % (10.5-14.5); WBC 13.7 thou/uL (4.0-11.0)
[2019-11-06 20:17] LABS: PROTIME 10.6 Seconds (9.20-11.50)
[2019-11-06 20:28] LABS: ALBUMIN 3.9 g/dL (3.4-5.0); CALCIUM 9.8 mg/dL (8.5-10.1); CREATININE 2.1 mg/dL (0.6-1.3); MAGNESIUM 2.6 mg/dL (1.8-2.4); POTASSIUM 4.8 mmol/L (3.5-5.1); TOTAL BILIRUBIN 0.7 mg/dL (<0.1-1.0); TOTAL PROTEIN 8.1 g/dL (6.4-8.2)
[2019-11-06 20:44] LABS: ABSOLUTE LYMPHOCYTES 0.8 thou/uL (0.8-5.3); ABSOLUTE MONOCYTES 0.1 thou/uL (0.0-1.2); ABSOLUTE NEUTROPHILS 12.7 thou/uL (1.6-8.1); ANISOCYTOSIS Occasional; PLATELET ESTIMATE ADEQUATE
[2019-11-06 20:45] LABS: LARGE PLATELETS RARE
[2019-11-06 21:31] LABS: URINE BLOOD 2+ (Negative); URINE CLARITY SL CLOUDY; URINE COLOR YELLOW; URINE GLUCOSE-RANDOM 2+ (Negative); URINE LEUKOCYTES-REFLEX NEGATIVE (Negative); URINE NITRITE-REFLEX NEGATIVE (Negative); URINE PROTEIN 2+ (Negative); URINE SPECIFIC GRAVITY >= 1.030 (1.005-1.030); URINE UROBILINOGEN 0.2 E.U./dl (0.2-1.0)
[2019-11-06 21:36] LABS: ICTOTEST (BILI CONFIRMATORY) Negative (Negative); URINE BILIRUBIN 2+ (Negative); URINE KETONES 3+ (Negative)
[2019-11-06 21:37] LABS: MUCUS None Seen strn/LPF (None Seen); SQUAMOUS >10 Many /LPF (0-3)
[2019-11-06 21:38] LABS: BACTERIA-REFLEX 1-9 Few /HPF (None Seen); YEAST-REFLEX Present (None Seen)
[2019-11-06 21:39] LABS: HYALINE CASTS 0-3 Few /LPF (None Seen); URINE RBC 0-2 Rare /HPF (0-2); URINE WBC-REFLEX 0-5 Rare /HPF (0-5)
[2019-11-06 21:40] LABS: CRYSTALS None Seen /LPF (None Seen)
[2019-11-07] VITALS (28 sets, daily range): BP systolic 119–202; BP diastolic 43–86
[2019-11-07 00:58] LABS: BE -21.2 mmol/L (-2 to +3)
[2019-11-07 01:00] LABS: PO2 151.8 mmHg (75.0-100.0); pH 7.133 (7.340-7.450)
[2019-11-07 01:35] LABS: CALCIUM 8.3 mg/dL (8.5-10.1); CREATININE 1.8 mg/dL (0.6-1.3); PHOSPHORUS* 2.8 mg/dL (2.5-4.9); POTASSIUM 3.8 mmol/L (3.5-5.1)
[2019-11-07 05:12] LABS: ALBUMIN 2.8 g/dL (3.4-5.0); CALCIUM 8.2 mg/dL (8.5-10.1); CREATININE 1.8 mg/dL (0.6-1.3); MAGNESIUM 1.9 mg/dL (1.8-2.4); PHOSPHORUS* 1.2 mg/dL (2.5-4.9); POTASSIUM 3.8 mmol/L (3.5-5.1)
[2019-11-07 09:46] LABS: ALBUMIN 2.8 g/dL (3.4-5.0); CALCIUM 8.2 mg/dL (8.5-10.1); CREATININE 1.8 mg/dL (0.6-1.3); MAGNESIUM 1.9 mg/dL (1.8-2.4); PHOSPHORUS* 1.5 mg/dL (2.5-4.9); POTASSIUM 4.2 mmol/L (3.5-5.1)
--- NOTE | 2019-11-07 10:09 | EKG ---
[place] [address] ELECTROCARDIOGRAM REPORT Name: DEJON RANDHAWARADHA Room: [address] ADM IN M.R.#: [id number] Admission: 11/06/19 Attend Phys: Sparkle Bill, Discharge: Date of : 54 Date of Service: 11/06/19 1819 Report #: [id number] THIS REPORT FOR: //name// [facility] ED Test Date: 2019-11-06 Test Time: 18:19:46 Pat Name: DIONI RANDAHWA Department: Room: [facility] Gender: F Rn Ante Partum: SUKHDEV : 1950 Requested By: Lauren Becerra Order Number: [id number] MD: Uli Weaver Measurements Intervals [place] Rate: 158 P: -21 MS: 41 QRS: -32 QRSD: 113 T: -84 QT: 289 QTc: 469 Interpretive Statements atrial flutter Multiple ventricular premature complexes Abnormal R-wave progression, late transition Inferior infarct, age indeterminate Compared to ECG 05/09/2019 18:10:16 Ventricular premature complex(es) now present Sinus tachycardia no longer present Electronically Signed On 11-07-2019 10:09:07 CDT by Uli Weaver [email or web address] <ELECTRONICALLY SIGNED> By: Uli Weaver MD, [facility] 11/07/19 1009 18 18 Uli Weaver MD, [facility] /EPI
[2019-11-07 11:59] LABS: CHOLESTEROL 132 mg/dL (<200); HDL CHOLESTEROL 41 mg/dL (>40); LDL CHOLESTEROL 51 mg/dL (<100); SERUM ASSESSMENT Clear; TC:HDL 3.2 Ratio (Not establshd); TRIGLYCERIDE 202 mg/dL (<150); VLDL 40 mg/dL (<40)
--- NOTE | 2019-11-07 12:51 | 2DMMODE ---
[place] [address] 2 D/M-MODE ECHOCARDIOGRAM Name: DIONI RANDHAWA Room: [address] IN [place].#: [id number] Admission: 11/06/19 Attend Phys: Sparkle Bill, Discharge: Date of : 54 Date of Service: 11/07/19 1250 Report #: [id number] THIS REPORT FOR: cc: Ivania Pichardo,Ivania Zamudio,Uli [place] MD [facility] ~ APPROVED REPORT Study performed: 11/07/2019 11:28:04 EXAM: Comprehensive 2D, Doppler, and color-flow Echocardiogram Patient Location: In-Patient Room #: 008 Status: routine BSA: 1.91 HR: 100 bpm BP: 167/63 mmHg Rhythm: NSR Other Information Study Quality: Good Indications Atrial Fibrillation 2D Dimensions IVSd: 11.31 (7-11mm) LVOT Diam: 18.83 (18-24mm) LVDd: 40.84 mm PWd: 10.64 (7-11mm) Ascending Ao: 31.95 (22-36mm) LVDs: 25.39 (25-40mm) Aortic Root: 29.33 mm Volumes Left Atrial Volume (Systole) LA ESV Index: 23.00 mL/m2 Aortic Valve AoV Peak Anastacio.: 1.65 m/s AO Peak Gr.: 10.89 mmHg LVOT Max P.42 mmHg AO Mean Gr.: 5.34 mmHg LVOT Mean P.85 mmHg LVOT Max V: 1.16 m/s AO V2 VTI: 25.47 cm LVOT Mean V: 0.78 m/s TORITO (VTI): 1.94 cm2 LVOT V1 VTI: 17.70 [place] [address] 2 D/M-MODE ECHOCARDIOGRAM Name: DIONI RANDHAWA Room: [address] IN [facility]#: [id number] Admission: 11/06/19 Attend Phys: Sparkle Bill, Discharge: Date of : 54 Date of Service: 11/07/19 1250 Report #: [id number] Mitral Valve E/A Ratio: 0.88 MV Decel. Time: 223.77 ms MV E Max Anastacio.: 1.00 m/s MV PHT: 64.89 ms MVA (PHT): 3.39 cm2 TDI E/Lateral E': 11.11 E/Medial E': 14.29 Medial E' Anastacio.: 0.07 m/s Lateral E' Anastacio.: 0.09 m/s Pulmonary Valve PV Peak Anastacio.: 1.38 m/s PV Peak Gr.: 7.60 mmHg Left Ventricle The left ventricle is normal size. There is normal LV segmental wall motion. There is normal left ventricular wall thickness. Left ventricular systolic function is normal. The left ventricular ejection fraction is within the normal range. LVEF is 60-65%. Grade IV - fixed restrictive diastolic dysfunction. Right Ventricle The right ventricle is normal size. The right ventricular systolic function is normal. Atria The left atrium size is normal. The right atrium size is normal. Aortic Valve Mild aortic valve sclerosis. Mild aortic regurgitation. Mild aortic stenosis. Mitral Valve The mitral valve is normal in structure. There is no mitral valve regurgitation noted. No evidence of mitral valve stenosis. Tricuspid Valve The tricuspid valve is normal in structure. Trace tricuspid regurgitation. Unable to assess PA pressure. Pulmonic Valve The pulmonary valve is normal in structure. There is no [place]mon[place] [address] 2 D/M-MODE ECHOCARDIOGRAM Name: DIONI RANDHAWA Room: [address]#: [id number] Admission: 11/06/19 Attend Phys: Sparkle Bill, Discharge: Date of : 54 Date of Service: 11/07/19 1250 Report #: [id number] Great Vessels The aortic root is normal in size. IVC is normal in size and collapses >50% with inspiration. Pericardium There is no pericardial effusion. <Conclusion> LVEF is 60-65%. Mild aortic valve sclerosis. Mild aortic regurgitation. <ELECTRONICALLY SIGNED> By: Uli Weaver MD, [facility] 11/07/19 1250 49 49 Uli Weaver MD, FAC /INF
--- NOTE | 2019-11-07 14:23 | EKG ---
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: ANIA : 1950 Requested By: Blanca Irving Order Number: [id number] Raffy MD: Uli Weaver Measurements Intervals [place] Rate: 101 P: 6 NC: 150 QRS: -16 QRSD: 100 T: -80 QT: 318 QTc: 413 Interpretive Statements Sinus tachycardia nonspecific t wave changes Multiple ventricular premature complexes Borderline left axis deviation Borderline low voltage, extremity leads Baseline wander in lead(s) I,III,aVL,aVF,V3 Compared to ECG 11/06/2019 18:19:46 Atrial flutter no longer present Electronically Signed On 11-07-2019 14:22:58 CDT by Uli Weaver [email or web address] <ELECTRONICALLY SIGNED> By: Uli Weaver MD, [facility] 11/07/19 1422 1121 1121 Uli Weaver MD, [facility] /EPI
[2019-11-07 19:59] LABS: AMP/METHAMP Negative (Negative); BARBITURATES Negative (Negative); BENZODIAZEPINES Negative (Negative); COCAINE Negative (Negative); METHADONE Negative (Negative); OPIATES Negative (Negative); PCP Negative (Negative); THC Negative (Negative)
[2019-11-07 22:40] LABS: ALBUMIN 2.3 g/dL (3.4-5.0); CALCIUM 8.2 mg/dL (8.5-10.1); CREATININE 1.7 mg/dL (0.6-1.3); MAGNESIUM 1.8 mg/dL (1.8-2.4); PHOSPHORUS* 1.3 mg/dL (2.5-4.9); POTASSIUM 3.3 mmol/L (3.5-5.1)
[2019-11-08] VITALS (37 sets, daily range): BP systolic 118–173; BP diastolic 43–83
[2019-11-08 04:09] LABS: ABSOLUTE BASOPHILS 0.1 thou/uL (0.0-0.2); ABSOLUTE EOSINOPHILS 0.1 thou/uL (0.0-0.7); ABSOLUTE LYMPHOCYTES 1.4 thou/uL (0.8-5.3); ABSOLUTE MONOCYTES 0.8 thou/uL (0.0-1.2); ABSOLUTE NEUTROPHILS 7.9 thou/uL (1.6-8.1); BASOPHILS 0.5 %; EOSINOPHILS 0.9 %; HEMATOCRIT 35.2 % (37.0-47.0); LYMPHOCYTES 13.5 %; MCHC 33.1 g/dL (28.0-37.0); MCV 90.7 fL (80.0-100.0); MONOCYTES 8.1 %; MPV 9.5 fl. (7.2-11.1); NUCLEATED RBCS 0 /100WBC; RBC 3.88 mil/uL (4.20-5.00); WBC 10.2 thou/uL (4.0-11.0)
[2019-11-08 04:11] LABS: HEMOGLOBIN 11.6 gm/dL (12.0-15.0); PLATELET COUNT* 192 thou/uL (150-400)
[2019-11-08 04:43] LABS: ALBUMIN 2.5 g/dL (3.4-5.0); ALKALINE PHOSPHATASE 90 U/L (46-116); ANION GAP 10 mmol/L (7-16); BUN 14 mg/dL (7-18); CALCIUM 7.8 mg/dL (8.5-10.1); CHLORIDE 118 mmol/L (98-107); CO2 20 mmol/L (21-32); CREATININE 1.7 mg/dL (0.6-1.3); GLUCOSE 180 mg/dL (70-99); PHOSPHORUS* 1.2 mg/dL (2.5-4.9); POTASSIUM 3.8 mmol/L (3.5-5.1); SGOT 14 U/L (15-37); SGPT 10 U/L (30-65); SODIUM 148 mmol/L (136-145); TOTAL BILIRUBIN 0.8 mg/dL (<0.1-1.0); TOTAL PROTEIN 5.5 g/dL (6.4-8.2)
[2019-11-08 12:28] LABS: URINE BILIRUBIN NEGATIVE (Negative); URINE BLOOD 1+ (Negative); URINE CLARITY SL CLOUDY; URINE COLOR YELLOW; URINE GLUCOSE-RANDOM TRACE (Negative); URINE KETONES NEGATIVE (Negative); URINE LEUKOCYTES 1+ (Negative); URINE NITRITE NEGATIVE (Negative); URINE PROTEIN 1+ (Negative); URINE SPECIFIC GRAVITY 1.025 (1.005-1.030); URINE UROBILINOGEN 0.2 E.U./dl (0.2-1.0)
[2019-11-08 12:37] LABS: SQUAMOUS 4-10 Moderate /LPF (0-3)
[2019-11-08 12:38] LABS: WBC CLUMPS Few (None Seen)
[2019-11-08 12:40] LABS: URINE RBC 3-10 Few /HPF (0-2); URINE WBC 6-15 Few /HPF (0-5)
[2019-11-08 12:42] LABS: AMORPHOUS URATES Few /LPF (None Seen); CASTS None Seen /LPF (None Seen); MUCUS None Seen strn/LPF (None Seen); YEAST Present (None Seen)
[2019-11-08 12:44] LABS: URIC ACID CRYSTALS >10 Many /LPF (None Seen)
[2019-11-09] VITALS (21 sets, daily range): BP systolic 98–156; BP diastolic 34–68
[2019-11-09 04:48] LABS: ALBUMIN 2.2 g/dL (3.4-5.0); CALCIUM 7.8 mg/dL (8.5-10.1); CREATININE 1.1 mg/dL (0.6-1.3); PHOSPHORUS* 2.1 mg/dL (2.5-4.9); POTASSIUM 3.3 mmol/L (3.5-5.1)
[2019-11-10 00:13] VITALS: BP 163/69
[2019-11-10 03:33] LABS: CALCIUM 7.8 mg/dL (8.5-10.1); MAGNESIUM 1.3 mg/dL (1.8-2.4); POTASSIUM 3.5 mmol/L (3.5-5.1)
[2019-11-10 08:45] VITALS: BP 153/70
[2019-11-10 15:11] LABS: MAGNESIUM 1.4 mg/dL (1.8-2.4); POTASSIUM 3.8 mmol/L (3.5-5.1)
[2019-11-10 16:19] VITALS: BP 171/72
[2019-11-10 20:00] VITALS: BP 153/70
[2019-11-11 07:59] VITALS: BP 148/69
[2019-11-11 10:48] VITALS: BP 148/69
[2019-11-11 15:48] VITALS: BP 159/68
[2019-11-11 21:40] VITALS: BP 165/66
[2019-11-12 01:00] VITALS: BP 148/59
[2019-11-12 08:10] VITALS: BP 184/83
[2019-11-12 16:00] VITALS: BP 162/68
[2019-11-12 21:40] VITALS: BP 178/62
[2019-11-13 07:14] LABS: CALCIUM 8.2 mg/dL (8.5-10.1); CREATININE 0.9 mg/dL (0.6-1.3); POTASSIUM 3.1 mmol/L (3.5-5.1); TOTAL BILIRUBIN 0.2 mg/dL (<0.1-1.0); TOTAL PROTEIN 5.2 g/dL (6.4-8.2)
[2019-11-13 07:45] VITALS: BP 156/50
[2019-11-13 15:42] VITALS: BP 178/71
[2019-11-13 21:00] VITALS: BP 170/73
[2019-11-14] VITALS: BP 173/68
--- NOTE | 2019-11-14 03:46 | CON ---
[address] [address] CONSULTATION Name: DIONI RANDHAWA Room: [address] ADM IN M.R.#: [id number] Admission: 11/06/19 Attend Phys: Sparkle Bill MD Discharge: Date of : 54 Report #: [id number] THIS REPORT FOR: //name// cc: Ivania Pichardo Linda J. DO ~ THIS REPORT FOR: //name// CC: Sparkle Pichardo DATE OF SERVICE: 11/07/2019 HISTORY OF PRESENT ILLNESS: This 68-year-old female patient who was evaluated by me for altered mental status. There is no reliable history available in this patient. She does not talk. I reviewed the patient's record and it looks like this patient has numerous medical problems. She was brought to Emergency Room and EMS has noticed that her house was pretty unkempt. She does have a history of paroxysmal atrial fibrillation and she was apparently on Eliquis, but it is not certain whether she was taking her medication properly or not. She was found to be in atrial flutter. It is not clear whether she was taking her rest of the medication properly or not. REVIEW OF SYSTEMS: Indicate that she had a history of end-stage renal disease. She had a kidney transplant. She has a history of coronary artery disease. She has a history of stroke. It is not sure how it affected her. She has a history of diabetes, hypertension, cholecystectomy, shingles, anxiety, depression, fistula. She has peripheral arterial disease. She has leg stent put in. She probably has neuropathy because she is on pregabalin. As mentioned above, compliance of her medications cannot be determined. This was a relevant 14-point review of system. PAST MEDICAL HISTORY: Positive for stroke. Further history is not available. FAMILY HISTORY: Not available even from the record. SOCIAL HISTORY: She does not use alcohol or tobacco. PHYSICAL EXAMINATION: Pretty limited. She did not talk at all, so it is not possible to check her memory and fund of knowledge or orientation. Cranial nerve examination 2-12 was attempted. She did not cooperate at all. Neuromuscular examination was attempted. I cannot tell whether she moves the right side less or not. Sensory systems is impossible to do and so is reflexes and tone because she does not relax. She did not understand the instruction for cerebellar sign and I could not look at the patient's fundus. Pulses could not be felt. She does not appear to be in respiratory difficulty. It would appear that she can hear and she can now. [place] [address] CONSULTATION Name: DIONI RANDHAWA Room: [address] IN M.R.#: [id number] Admission: 11/06/19 Attend Phys: Sparkle Bill MD Discharge: Date of : 54 Report #: [id number] pressure is 145/51, pulse is 95, temperature is 98.2. Cardiac examination: She had a flutter, but that has become better with the medication. She does not have any respiratory difficulty. LABORATORY DATA: Indicate a WBC count of 13.7. Sodium is 148, glucose is high. She did have a head CT and that does not appear to be showing any acute abnormality. IMPRESSION: This patient may have encephalopathy. However, her compliance with anticoagulation is not clear and she has a history of atrial fibrillation. Because of that, the possibility of stroke needs to ____. Thank you very much for this referral and if you have any question, please feel free to contact me and we will follow the patient with you after the MRI and EEG is done, which I ordered. <ELECTRONICALLY SIGNED> By: Lb Faustin MD 11/14/19 0346 1530 [id number] Faustin MD /nt
--- NOTE | 2019-11-14 03:46 | EEG ---
[address] [address] EEG STUDY REPORT Name: DIONI RANDHAWA Room: [address] IN M.R.#: [id number] Admission: 11/06/19 Attend Phys: Sparkle Bill MD Discharge: Date of : 54 Report #: [id number] THIS REPORT FOR: //name// CC: Sparkle Pichardo DATE OF SERVICE: 11/07/2019 ELECTROENCEPHALOGRAM This patient is being evaluated for altered mental status. EEG was done by placing the electrode by standard 10-20 system of electrode placement. Both referential and sequential montages were used for recording. Background activity in this patient's EEG is about 7 Hz and 15 microvolt. It is a symmetrical activity. Photic stimulation is unremarkable. The patient became drowsy that is associated with bilateral slowing. Throughout the record, no active epileptiform activity was noted. IMPRESSION: This is an abnormal EEG because it is disorganized and poorly formed. That is a nonspecific abnormality, which can occur with encephalopathy, effect of psychotropic medication, dementia, etc. Clinical correlation is recommended. <ELECTRONICALLY SIGNED> By: Lb Faustin MD 11/14/19 0346 1503 1544Pmary Faustin MD /nt
[2019-11-14 07:50] VITALS: BP 157/68
--- NOTE | 2019-11-14 10:17 | CON ---
[address] [address] CONSULTATION Name: DIONI RANDHAWA Room: [address] ADM IN M.R.#: [id number] Admission: 11/06/19 Attend Phys: Sparkle Bill MD Discharge: Date of : 54 Report #: [id number] THIS REPORT FOR: //name// cc: Ivania Pichardo Linda J. DO ~ THIS REPORT FOR: //name// CC: Sparkle Pichardo NEPHROLOGY CONSULTATION CONSULTING PHYSICIAN: Sparkle Bill MD REASON FOR CONSULTATION: History of kidney transplant and acute kidney injury. HISTORY OF PRESENT ILLNESS: A 68-year-old female who came into the Emergency Department with altered mental status, found to be in DKA, has a history of kidney transplant in 2011, followed by Dr. Diaz as an outpatient. She was treated for DKA protocol and is doing much better now. An initial bicarbonate was 7. She is a somewhat limited historian at present time, but overall is much improved and will possibly transfer to the floor today. REVIEW OF SYSTEMS: Constitutional, psych, heme, eyes, ENT, respiratory, cardiac, GI, , endocrine, all negative except as documented above. PAST MEDICAL HISTORY: 1. -donor kidney transplant in 2011. 2. Coronary artery disease with history of CABG in 2001. 3. History of stroke. 4. Diabetes type 1. 5. Hypertension. 6. Cholecystectomy. 7. Anxiety. 8. Peripheral vascular disease with left lower extremity stent. FAMILY HISTORY: Not pertinent in this 68-year-old female. SOCIAL HISTORY: No tobacco. CURRENT MEDICATIONS: Reviewed. PHYSICAL EXAMINATION: VITAL SIGNS: Blood pressure 153/68, pulse 85, respirations 22, temperature 36.9. GENERAL: No acute distress. E[place]: [place] [address] CONSULTATION Name: DIONI FARIA Room: [address] IN [facility]#: [id number] Admission: 11/06/19 Attend Phys: Sparkle Bill MD Discharge: Date of : 54 Report #: [id number] EARS: Externally normal. NECK: Supple. CARDIOVASCULAR: Regular rate. LUNGS: Diminished breath sounds. ABDOMEN: Soft. MUSCULOSKELETAL: Nontender. PSYCHIATRIC: Somnolent, but does awaken and opens eyes. LABORATORY DATA: White cell count 10.2, hemoglobin 11.6, platelets 192. Sodium 148, potassium 3.8, chloride 118, bicarbonate 20, BUN 14, creatinine 1.7, glucose 180, calcium 7.8, phosphorus 1.2, albumin 2.5. ASSESSMENT: 1. Acute kidney injury in the setting of diabetic ketoacidosis and volume depletion. Transplant renal ultrasound was okay. UA was abnormal. Admission creatinine was 2.1. Urine drug screen was negative. EF of 60-65% with diastolic dysfunction. 2. Metabolic acidosis in the setting of diabetic ketoacidosis with an admission bicarbonate of 7. 3. Hypoalbuminemia with an albumin of 2.8. 4. -donor kidney transplant in 2011, on tacrolimus and mycophenolate. Baseline creatinine probably is around 1.3-1.6, followed by Dr. Diaz as an outpatient. 5. Insulin-dependent diabetes type 1. 6. Hypertension. 7. Coronary artery disease with history of coronary artery bypass graft in 2001. 8. History of cerebrovascular accident in 2006. 9. Paroxysmal atrial fibrillation with rapid ventricular response, resolved with beta-jean pierre. 10. Peripheral vascular disease with history of left lower extremity stent. 11. Leukocytosis on admission. PLAN: 1. Creatinine is 1.7. This is probably close to her baseline. Continue hydration. Her anion gap is now closed. IV fluids could be reduced to 100 mL per hour. From my standpoint, she will need a repeat UA at a later point. 2. Hypophosphatemia. Phosphorus is 1.2 in the setting of DKA. Phosphorus is being replaced. We will check lab again in the a.m. 3. Antibiotics per Internal Medicine. Thank you for requesting my opinion in the care and management of this patient. <ELECTRONICALLY SIGNED> By: Tone Heck MD 11/14/19 1017 [id number] Heck MD /nt
[2019-11-14 12:22] VITALS: BP 157/68
== END 2019-11-14 13:45 | disposition home health service (06) | DRG 871 ==
LOC: M.ERS 18:12 → M.ICU 23:16 → M.TBA-ER 23:16 → M.ORTHSURG 23:16 → M.ICU 11-07 00:01 → M.ORTHSURG 11-09 16:08
PROVIDERS: Internal Medicine; Internal Medicine Nephrology; Personal Emergency Response Attendant; Registered Nurse; ADMIT Internal Medicine; ATTEND Internal Medicine
PROC: 02HV33Z Insertion of Infusion Device into Superior Vena Cava, Percutaneous Approach (ICD-10-PCS; principal; 2019-11-06)
DX: A41.9 Sepsis, unspecified organism (principal); G93.41 Metabolic encephalopathy; N17.0 Acute kidney failure with tubular necrosis; N18.6 End stage renal disease; E11.10 Type 2 diabetes mellitus with ketoacidosis without coma; Z94.0 Kidney transplant status; E44.0 Moderate protein-calorie malnutrition; B37.0 Candidal stomatitis; I48.92 Unspecified atrial flutter; N39.0 Urinary tract infection, site not specified; Z20.828 Contact with and (suspected) exposure to other viral communicable diseases; I25.10 Atherosclerotic heart disease of native coronary artery without angina pectoris; I10 Essential (primary) hypertension; F41.9 Anxiety disorder, unspecified; F32.9 Major depressive disorder, single episode, unspecified; E88.09 Other disorders of plasma-protein metabolism, not elsewhere classified; I48.0 Paroxysmal atrial fibrillation; E11.51 Type 2 diabetes mellitus with diabetic peripheral angiopathy without gangrene; E11.22 Type 2 diabetes mellitus with diabetic chronic kidney disease; Z82.49 Family history of ischemic heart disease and other diseases of the circulatory system; Z95.1 Presence of aortocoronary bypass graft; Z86.73 Personal history of transient ischemic attack (TIA), and cerebral infarction without residual deficits; Z90.49 Acquired absence of other specified parts of digestive tract; Z95.820 Peripheral vascular angioplasty status with implants and grafts; Z88.6 Allergy status to analgesic agent; Z91.041 Radiographic dye allergy status; Z68.23 Body mass index [BMI] 23.0-23.9, adult; Z82.3 Family history of stroke